=== PATIENT | female | born 1945 | race Caucasian/White ===

== ENCOUNTER 2019-10-23 19:37 | Inpatient (IN) | payer MEDICARE, OTHER ==
[~2019-10-23] VITALS: Ht 157.5 cm; Wt 63.6 kg
[2019-10-23] MEDS ORDERED: CYCL-331 PO (20:55)
[2019-10-23] MEDS ORDERED: OMEP40CA45 PO (20:55)
[2019-10-23] MEDS ORDERED: FLUT9.9S NS (20:55)
[2019-10-23] MEDS ORDERED: POLY2500 PO (20:55)
[2019-10-23] MEDS ORDERED: CALC-31 PO (20:55)
[2019-10-23] MEDS ORDERED: ASPI-612 PO (20:55)
[2019-10-23] MEDS ORDERED: CRAN250C PO (20:55)
[2019-10-23] MEDS ORDERED: METO50TA6 PO (20:55)
[2019-10-23] MEDS ORDERED: SIME80TA14 PO (20:55)
[2019-10-23] MEDS ORDERED: LEVO50TA5 PO (20:55)
[2019-10-23] MEDS ORDERED: LORA10TA3 PO (20:55)
[2019-10-23] MEDS ORDERED: GENTAMICIN NS (20:55)
[2019-10-23] MEDS ORDERED: ACET500T68 PO (20:55)
[2019-10-23] MEDS ORDERED: BENA20TA4 PO (20:55)
[2019-10-23] MEDS ORDERED: OMEG10005 PO (20:55)
[2019-10-23] MEDS ORDERED: POLY15DR20 EACHEYE (20:55)
[2019-10-23] MEDS ORDERED: LACT1CAP21 PO (20:55)
[2019-10-23] MEDS ORDERED: MULT-245 PO (20:55)
[2019-10-23] MEDS ORDERED: SODI50SP NS (20:55)
[2019-10-23] MEDS ORDERED: NYST1000 PO (20:55)
[2019-10-23] MEDS ORDERED: ATOR20TA58 PO (20:55)
[2019-10-23] MEDS ORDERED: MAGNESIUM HYDROXIDE 2,400 MG/30 ML ORAL.SUSP. PO PRN (21:15)
--- NOTE | 2019-10-23 21:25 | PDOC ---
Exam Note: Ashok Note: Please also refer to the separate dictated note~for this date of service dictated separately. Discussed the patient with Nursing staff reviewed the chart.~Reviewed interim history and current functioning. Reviewed vital signs,~Labs/ Radiology~and current medications noted below. Continue current treatment with the changes noted in the dictated addendum note Current Medications: I have reviewed the current psychotropics carefully including drug interactions. Risk benefit ratio favors no change other than as noted in my dictated progress note. ERNESTINA KINSEY MD Oct 23, 2019 21:25
[2019-10-23] MEDS ORDERED: ACETAMINOPHEN 500 MG TABLET PO PRN (22:00)
[2019-10-23] MEDS ORDERED: POLYVINYL ALCOHOL 1.4% OPHTH SOLUTION 15ML BOTTLE. OU PRN (22:00)
[2019-10-23] MEDS ORDERED: SODIUM CHLORIDE 0.65% NASAL SPRAY 45ML BOTTLE. NS PRN (22:00)
[2019-10-23 22:38] LABS: BASO % 0 % (0-3); EOS # 0.1 x10^3/uL (0.0-0.7); EOS % 1 % (0-3); HEMATOCRIT 35.1 % (36.0-47.0); HEMOGLOBIN 12.3 g/dL (12.0-15.5); LYMPH # 2.4 x10^3/uL (1.0-4.8); LYMPH % 25 % (24-48); MEAN CORPUSCULAR HEMOGLOBIN 34 pg (25-35); MEAN CORPUSCULAR HGB CONC 35 g/dL (31-37); MEAN CORPUSCULAR VOLUME 97 fL (79-100); MONO % 11 % (0-9); NEUT # 6.2 x10^3uL (1.8-7.7); NEUT % 64 % (31-73); PLATELET COUNT 300 x10^3/uL (140-400); RED BLOOD COUNT 3.63 x10^6/uL (3.50-5.40); RED CELL DISTRIBUTION WIDTH 12.4 % (11.5-14.5); WHITE BLOOD COUNT 9.7 x10^3/uL (4.0-11.0)
[2019-10-23 22:47] LABS: ALBUMIN 3.9 g/dL (3.4-5.0); ALBUMIN/GLOBULIN RATIO 1.1 (1.0-1.7); CALCIUM 9.6 mg/dL (8.5-10.1); GFR 54.1; MAGNESIUM 1.7 mg/dL (1.8-2.4); POTASSIUM 3.9 mmol/L (3.5-5.1); TOTAL BILIRUBIN 0.3 mg/dL (0.2-1.0); TOTAL PROTEIN 7.6 g/dL (6.4-8.2)
--- NOTE | 2019-10-24 00:59 | EKG ---
[address] [address] Test Date: 2019-10-23 Test Time: 22:16:27 Pat Name: RADHA GEORGE Department: Room: [address] [place] [address] Gender: F Bung Driver: GERRY : 1945 Requested By: ERNESTINA KINSEY Order Number: [id number] Reading MD: Measurements Intervals [place] Rate: 63 P: 66 [place]: 178 QRS: -59 QRSD: 192 T: 123 QT: 452 QTc: 466 Interpretive Statements SINUS RHYTHM ATRIAL PREMATURE COMPLEX(ES) ABNORMAL LEFT AXIS DEVIATION NON SPECIFIC INTRAVENTRICULAR BLOCK ABNORMAL ECG RI6.02 No previous ECG available for comparison
[2019-10-24 01:48] VITALS: BP 138/63
--- NOTE | 2019-10-24 02:38 | NUR ---
Admission Note with Justification for Admission to [facility] Patient admitted to [facility] for protective oversight for emergency stabilization of acute psychiatric crisis. Pt admitted from: Home Mode of arrival: Secure Transport Accompanied By: Secure Transport Precipitating behaviors that initiated intake and admission: The patient did not trust herself to not harm herself at home. Description of failure of out patient attempts at stabilization in previous setting list behavior and medication trials: Medication, ER Behaviors and assessment findings upon admission: The patient was calm and compliant upon arrival. The patient was appropriate during interactions with this nurse and peers. The patient denied current SI thoughts but confirmed that she had thoughts of dying prior to admission. Plan: Admit for protective oversight for adjustment and stabilization of medications, behaviors and mood. Intense treatment regimen including groups, medication adjustments, therapy, consistent regimen for ADL's, self care, and sleep hygiene. Daily monitoring by Inpatient staff, Psychiatry, and Medical Physician.
[2019-10-24] MEDS: LEVOTHYROXINE 50 MCG TABLET PO SCH (05:51)
[2019-10-24 06:15] VITALS: BP 148/77
[2019-10-24] MEDS ORDERED: NON FORMULARY ITEM (Loratadine 10 MG) PO SCH (09:00)
[2019-10-24] MEDS: GENTAMICIN NS SCH ×2 (09:00→20:38)
[2019-10-24] MEDS ORDERED: CRANBERRY EXTRACT PO SCH (09:00)
[2019-10-24] MEDS: METOPROLOL TART IMMED RELEASE 50 MG TABLET PO SCH ×2 (09:01→20:38)
[2019-10-24] MEDS: LACTOBACILLUS RHAMNOSUS GG 1 CAPSULE. PO SCH (09:01)
[2019-10-24] MEDS: ASPIRIN ENTERIC COATED 81 MG TABLET.DR. PO SCH (09:01)
[2019-10-24] MEDS: MULTIVITAMIN with MINERAL TABLET. PO SCH (09:02)
[2019-10-24] MEDS: OMEGA-3 FATTY ACIDS/FISH OIL 1,000 MG CAPSULE. PO SCH (09:02)
[2019-10-24] MEDS: LISINOPRIL 20 MG TABLET PO SCH (09:02)
[2019-10-24] MEDS: PANTOPRAZOLE 40 MG TABLET. PO SCH (09:02)
[2019-10-24] MEDS: NYSTATIN 100,000 UNITS/ML ORAL SUSPENSION 60ML BOTTLE. PO SCH ×4 (09:03→20:36)
[2019-10-24] MEDS: POLYETHYLENE GLYCOL 3350 17 GM PACKET. PO SCH (09:03)
[2019-10-24] MEDS: CALCIUM CARB/VIT D3 500/200 TABLET PO SCH ×2 (09:03→20:36)
[2019-10-24] MEDS: FLUTICASONE 50MCG/NASAL SPRAY 16GM BOTTLE. NS SCH (09:03)
[2019-10-24] MEDS: ACETAMINOPHEN 325 MG TABLET PO PRN (14:14)
[2019-10-24] MEDS: METHYL SALICYLATE/MENTHOL TOPICAL OINTMENT 57GM TUBE. TP PRN (14:14)
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
[2019-10-24 16:07] VITALS: BP 132/74
--- NOTE | 2019-10-24 17:57 | NUR ---
Pt in dining room for morning med pass and assessment. Pt calm, compliant, interactive. Pt is oriented x4. Pt states she has No thoughts of harming herself at this time.
[2019-10-24 19:07] LABS: THYROXINE 8.8 ug/dL (4.5-12.0)
[2019-10-24] MEDS: ATORVASTATIN CALCIUM 20 MG TABLET PO SCH (20:36)
[2019-10-24] MEDS: CYCLOBENZAPRINE 10 MG TABLET. PO SCH (20:36)
--- NOTE | 2019-10-24 22:00 | NUR ---
Patient is the day room on assumption of care, socializing with a peer and watching television. She is calm, cooperative and compliant with medications and assessments. No agitation. Denies pain or discomfort. Denies SI.
[2019-10-24 22:23] LABS: BACTERIA,URINE 0 /HPF (0-FEW); BILIRUBIN,URINE NEG (NEG); CLARITY,URINE CLEAR; COLOR,URINE YELLOW; GLUCOSE,URINE NEG (NEG); NITRITE,URINE NEG (NEG); RBC,URINE OCC /HPF (0-2); SQUAMOUS EPITHELIAL CELL,UR OCC /LPF; UROBILINOGEN,URINE 0.2 mg/dL (0.2 mg/dL); WBC,URINE OCC /HPF (0-4)
--- NOTE | 2019-10-24 22:37 | PDOC ---
Exam Note: Ashok Note: Please also refer to the separate dictated note~for this date of service dictated separately.~Patient seen individually. Discussed the patient with Nursing staff reviewed the chart.~Reviewed interim history and current functioning. Reviewed vital signs,~Labs/ Radiology~and current medications noted below. Continue current treatment with the changes noted in the dictated addendum note Assessment: Vital Signs/I&O: Vital Signs Date Time Temp Pulse Resp B/P (MAP) Pulse Ox O2 Delivery O2 Flow Rate FiO2 10/24/19 20:38 70 132/74 10/24/19 16:07 98.2 18 99 Room Air 10/24/19 06:15 99.0 Labs: Laboratory Tests Test 10/24/19 21:30 Urine Collection Type Unknown Urine Color Yellow Urine Clarity Clear Urine pH 6.5 Urine Specific [place] 1.010 Urine Protein Neg (NEG-TRACE) Urine Glucose (UA) Neg mg/dL (NEG) Urine Ketones (Stick) Neg mg/dL (NEG) Urine Blood Neg (NEG) Urine Nitrite Neg (NEG) Urine Bilirubin Neg (NEG) Urine Urobilinogen Dipstick 0.2 mg/dL (0.2 mg/dL) Urine Leukocyte Esterase Neg (NEG) Urine RBC Occ /HPF (0-2) Urine WBC Occ /HPF (0-4) Urine Squamous Epithelial Cells Occ /LPF Urine Bacteria 0 /HPF (0-FEW) Current Medications: Meds: Current Medications Medications (Trade) Dose Ordered Sig/Scott Route PRN Reason Start Time Stop Time Status Last Admin Dose Admin Aspirin (Aspirin Enteric Coated) 81 mg DAILY PO 10/24/19 09:00 10/24/19 09:01 Atorvastatin Calcium (Lipitor) 20 mg QHS PO 10/24/19 21:00 10/24/19 20:36 Cyclobenzaprine HCl (Flexeril) 10 mg HS PO 10/24/19 21:00 10/24/19 20:36 Levothyroxine Sodium (Synthroid) 50 mcg DAILY06 PO 10/24/19 06:00 10/24/19 05:51 Metoprolol Tartrate (Lopressor) 50 mg BID PO 10/24/19 09:00 10/24/19 20:38 Nystatin (Mycostatin) 5 ml QID PO 10/24/19 09:00 10/24/19 20:36 Lisinopril (Prinivil) 20 mg DAILY PO 10/24/19 09:00 10/24/19 09:02 Calcium/Vitamin D (Oscal D 500mg/ 200uts) 1 tab BID PO 10/24/19 09:00 10/24/19 20:36 Fluticasone Propionate (Flonase) 2 spray DAILY NS 10/24/19 09:00 10/24/19 09:03 Lactobacillus Rhamnosus (Culturelle) 1 cap DAILY PO 10/24/19 09:00 10/24/19 09:01 Multivitamins/ Calcium (Thera-M Plus) 1 tab DAILY PO 10/24/19 09:00 10/24/19 09:02 Fish Oil (Fish Oil) 1,000 mg DAILY PO 10/24/19 09:00 10/24/19 09:02 Pantoprazole Sodium (Protonix) 40 mg DAILYAC PO 10/24/19 07:30 10/24/19 09:02 Polyethylene Glycol (miraLAX) 17 gm DAILY PO 10/24/19 09:00 10/24/19 09:03 I have reviewed the current psychotropics carefully including drug interactions. Risk benefit ratio favors no change other than as noted in my dictated progress note. Diagnosis: Problems: (1) Psychotic disorder ERNESTINA KINSEY MD Oct 24, 2019 22:37
[2019-10-25 01:07] LABS: HEMOGLOBIN A1C 5.6 % (4.8-5.6)
[2019-10-25] MEDS: ACETAMINOPHEN 325 MG TABLET PO PRN (03:55)
[2019-10-25] MEDS: METHYL SALICYLATE/MENTHOL TOPICAL OINTMENT 57GM TUBE. TP PRN (03:55)
[2019-10-25 05:30] VITALS: BP 124/73
[2019-10-25] MEDS: LEVOTHYROXINE 50 MCG TABLET PO SCH (05:38)
[2019-10-25] MEDS: POLYETHYLENE GLYCOL 3350 17 GM PACKET. PO SCH (08:46)
[2019-10-25] MEDS: LACTOBACILLUS RHAMNOSUS GG 1 CAPSULE. PO SCH (08:47)
[2019-10-25] MEDS: CALCIUM CARB/VIT D3 500/200 TABLET PO SCH ×2 (08:48→20:40)
[2019-10-25] MEDS: METOPROLOL TART IMMED RELEASE 50 MG TABLET PO SCH ×2 (08:48→20:40)
[2019-10-25] MEDS: OMEGA-3 FATTY ACIDS/FISH OIL 1,000 MG CAPSULE. PO SCH (08:48)
[2019-10-25] MEDS: LISINOPRIL 20 MG TABLET PO SCH (08:48)
[2019-10-25] MEDS: ASPIRIN ENTERIC COATED 81 MG TABLET.DR. PO SCH (08:48)
[2019-10-25] MEDS: FLUTICASONE 50MCG/NASAL SPRAY 16GM BOTTLE. NS SCH (08:48)
[2019-10-25] MEDS: PANTOPRAZOLE 40 MG TABLET. PO SCH (08:48)
[2019-10-25] MEDS: MULTIVITAMIN with MINERAL TABLET. PO SCH (08:48)
[2019-10-25] MEDS: NYSTATIN 100,000 UNITS/ML ORAL SUSPENSION 60ML BOTTLE. PO SCH ×4 (08:49→20:41)
[2019-10-25] MEDS: GENTAMICIN NS SCH (09:00)
--- NOTE | 2019-10-25 09:13 | NUR ---
Patient ate breakfast quickly with minimal social interaction. Patient had a bowel movement today. Patient eager to take a shower today. Patient refused Miralax and previous nurse confirmed 1x loose stool last night. Patient complaint with medication and assessment.
[2019-10-25 15:42] VITALS: BP 116/73
--- NOTE | 2019-10-25 18:42 | NUR ---
Patient reports having a fungal infection on her feet from a used shoe she bought. Patient toe nails may appear a little yellow but no other signs noted at this time. Note left for doctor.
[2019-10-25] MEDS: CYCLOBENZAPRINE 10 MG TABLET. PO SCH (20:40)
[2019-10-25] MEDS: ATORVASTATIN CALCIUM 20 MG TABLET PO SCH (20:40)
--- NOTE | 2019-10-25 21:20 | PDOC ---
Exam Note: Ashok Note: Please also refer to the separate dictated note~for this date of service dictated separately.~Patient seen individually. Discussed the patient with Nursing staff reviewed the chart.~Reviewed interim history and current functioning. Reviewed vital signs,~Labs/ Radiology~and current medications noted below. Continue current treatment with the changes noted in the dictated addendum note Assessment: Vital Signs/I&O: Vital Signs Date Time Temp Pulse Resp B/P (MAP) Pulse Ox O2 Delivery O2 Flow Rate FiO2 10/25/19 20:40 83 116/73 10/25/19 15:42 96.6 20 98 10/24/19 16:07 Room Air 10/24/19 06:15 99.0 I & O 10/24/19 10/24/19 10/25/19 15:00 23:00 07:00 Intake Total 840 ml 480 ml Balance 840 ml 480 ml Labs: Laboratory Tests Test 10/24/19 21:30 Urine Collection Type Unknown Urine Color Yellow Urine Clarity Clear Urine pH 6.5 Urine Specific [place] 1.010 Urine Protein Neg (NEG-TRACE) Urine Glucose (UA) Neg mg/dL (NEG) Urine Ketones (Stick) Neg mg/dL (NEG) Urine Blood Neg (NEG) Urine Nitrite Neg (NEG) Urine Bilirubin Neg (NEG) Urine Urobilinogen Dipstick 0.2 mg/dL (0.2 mg/dL) Urine Leukocyte Esterase Neg (NEG) Urine RBC Occ /HPF (0-2) Urine WBC Occ /HPF (0-4) Urine Squamous Epithelial Cells Occ /LPF Urine Bacteria 0 /HPF (0-FEW) Current Medications: I have reviewed the current psychotropics carefully including drug interactions. Risk benefit ratio favors no change other than as noted in my dictated progress note. Diagnosis: Problems: (1) Psychotic disorder (2) Anxiety disorder (3) Impulse control disorder (4) Major depressive disorder, recurrent episode ERNESTINA KINSEY MD Oct 25, 2019 21:20
--- NOTE | 2019-10-25 22:54 | NUR ---
Pt located in the dayroom sitting calmly reading a book. Pt A/O x4, stated that she is here because her daughter moved to [place] and her pain has become unbearable and was afraid she would hurt herself. Pt denies SI at this time, but states she is depressed. Compliant with whole medications.
[2019-10-26 05:39] VITALS: BP 116/50
[2019-10-26] MEDS: LEVOTHYROXINE 50 MCG TABLET PO SCH (05:57)
[2019-10-26] MEDS: PANTOPRAZOLE 40 MG TABLET. PO SCH (08:22)
[2019-10-26] MEDS: LACTOBACILLUS RHAMNOSUS GG 1 CAPSULE. PO SCH (08:23)
[2019-10-26] MEDS: METOPROLOL TART IMMED RELEASE 50 MG TABLET PO SCH ×2 (08:23→20:30)
[2019-10-26] MEDS: CALCIUM CARB/VIT D3 500/200 TABLET PO SCH ×2 (08:23→20:30)
[2019-10-26] MEDS: ASPIRIN ENTERIC COATED 81 MG TABLET.DR. PO SCH (08:23)
[2019-10-26] MEDS: LISINOPRIL 20 MG TABLET PO SCH (08:23)
[2019-10-26] MEDS: OMEGA-3 FATTY ACIDS/FISH OIL 1,000 MG CAPSULE. PO SCH (08:23)
[2019-10-26] MEDS: MULTIVITAMIN with MINERAL TABLET. PO SCH (08:23)
[2019-10-26] MEDS: POLYETHYLENE GLYCOL 3350 17 GM PACKET. PO SCH (08:24)
[2019-10-26] MEDS: FLUTICASONE 50MCG/NASAL SPRAY 16GM BOTTLE. NS SCH (08:24)
[2019-10-26] MEDS: ACETAMINOPHEN 325 MG TABLET PO PRN ×2 (08:25→20:30)
[2019-10-26] MEDS: NYSTATIN 100,000 UNITS/ML ORAL SUSPENSION 60ML BOTTLE. PO SCH ×4 (08:25→20:31)
[2019-10-26] MEDS ORDERED: SERTRALINE 25 MG TABLET. PO SCH (09:00)
--- NOTE | 2019-10-26 09:06 | NUR ---
Patient ate breakfast. Patient mention her daughter and how she misses her but is proud of her daughter for reaching her goals. Patient eager to take a shower today. Patient refused Miralax states she had a loose stool last night. Patient complaint with medication and assessment.
--- NOTE | 2019-10-26 12:16 | HP ---
ADMIT DATE: 10/24/2019 I met with the patient evening of 10/24/2019 for this evaluation. IDENTIFYING DATA: The patient is a 74-year-old female referred to us from [facility], referred by [facility], who evaluated her and recommended inpatient psychiatric hospitalization for worsening symptoms of depression and suicidal ideation. The patient has been living alone in her apartment, getting more paranoid since her daughter left to move to [place], [place]. She states she does not trust herself to not harm herself. She is unable to commit to safety, was fearful, ruminating and obsessing about life not being worth living and having intrusive thoughts about suicide. She has failed outpatient psychiatric interventions and presented to the ER. She has also failed welfare checks and prior antidepressant treatment in the past. Cognitively, she remains intact, which raises the risk of hurting herself. She was therefore referred for inpatient psychiatric stabilization. CHIEF COMPLAINT: "Yes, I have been depressed. I live by myself. My daughter moved to [place]. It is difficult." HISTORY OF PRESENT ILLNESS: The patient has a history of depression, feeling hopeless, helpless, worthless with sleep and appetite disturbance. She has had some limited ability to take care of herself, has been more paranoid. No active homicidal ideation. No clear history of bipolar disorder. Cognitively, she is reasonably intact. PAST PSYCHIATRIC HISTORY: As noted above. PAST MEDICAL HISTORY: Positive for GERD, hypertension, hypothyroidism, osteopenia, second-degree heart block, pacemaker in place, aortic insufficiency, hyperlipidemia, hyponatremia as sciatica, chronic kidney disease stage 3, cystitis, environmental allergies, history of kidney cyst, history of left femoral fracture, memory loss, near syncope, osteoporosis, peripheral vascular disease, renal insufficiency, rheumatic fever, TMJ arthralgia, vertigo. ACCU-CHEKS: None. ALLERGIES: ENTEX LA, LEVOTHYROXINE, ATIVAN, ALENDRONATE, CINNAMON, CIPROFLOXACIN, CELEXA, FOSAMAX, GUANFACINE, LEVAQUIN, METOCLOPRAMIDE, PHENYLEPHRINE, SULFA, ZELNORM, ZYRTEC D, AMLODIPINE, KEFLEX, PREDNISONE, SUDAFED. CODE STATUS: Full code. DIET: Regular, cardiac. Takes medications whole. Ambulates with walker. CURRENT PSYCHOTROPICS: Nil. FAMILY HISTORY: Noncontributory. SOCIAL HISTORY: No history of alcohol, drug abuse, physical, sexual or elder abuse. She is not known to be a perpetrator. REACTION TO HOSPITALIZATION: The patient accepting of this. ASSETS: Patient has her daughter, but the daughter has moved to [facility]. The patient is cognitively intact. She has a friend who helps with grocery shopping and visits to the doctor. REVIEW OF SYSTEMS: Ambulation impaired with walker. No CV, , pulmonary, eye, ENT system symptoms on review. MENTAL STATUS EXAMINATION: Oriented to herself, situation and generally well oriented. Speech has some latency, coherent. Abstraction fair, computation somewhat impaired, language function intact, attention span short. Mood is depressed, anxious. Affect is mood congruent. She is somewhat paranoid, somewhat distractable. LABORATORY DATA: Reviewed. IMPRESSION: Major depressive disorder, recurrent with suicidal ideation, rule out psychotic features; anxiety disorder, unspecified. Rest as above. PLAN: Admit to Geropsychiatry Unit at [facility]. I will see the patient daily individually from a psychiatric standpoint. Medical followup with Dr. Milan. Continue the patient on her current psychotropics. Consider starting an SSRI. Allergy to Celexa is unclear and the patient does not remember any allergic reaction to the Celexa. We may need an alternate antidepressant. We will make all these decisions post baseline assessment. Estimated length of stay 10-12 days. DISPOSITION: Plans back home or assisted living with an intense outpatient treatment with a local [facility]. ERNESTINA KINSEY MD DR: KELSIE/renzo JOB#: [id number] / [id number]
[2019-10-26 15:24] VITALS: BP 128/70
--- NOTE | 2019-10-26 15:31 | PN ---
DATE: 10/25/2019 PSYCHIATRIC PROGRESS NOTE This late entry date 10/25/2019 covers elements not covered in my initial note. SUBJECTIVE: I met with the patient evening of 10/25/2019. The patient slept 6 hours previous night. She remains withdrawn, depressed, isolative. Denies active suicidal ideation. REVIEW OF SYSTEMS: Ambulation impaired with walker. No CV, , pulmonary, eye system symptoms on review. MENTAL STATUS EXAM: Reasonably oriented. Speech coherent, abstraction fair, computation somewhat impaired, language function intact. She is quite anxious, upset that president Mónica is going to be investigated again by the Congress and was perseverating on this. Addressed this with her. No active suicidal ideation. LABORATORY DATA: Reviewed. IMPRESSION: Major depressive disorder, recurrent with possible psychotic features; anxiety disorder, unspecified. Rest unchanged. PLAN: Continue current psychotropics. Start Zoloft 25 mg a day. Late at night, I was called by nursing staff that pharmacy noted allergy to Celexa and wanted to make sure Zoloft was appropriate. We reviewed her history records. The patient is unaware of any specific allergic reaction to Celexa and certainly nothing with any breathing problems or anaphylaxis. We will start Zoloft 25 mg a day. Observe closely and change as clinically indicated. Risk/benefit ratio favors this. Addressed this at length with nursing staff and reviewed her records as part of this. ERNESTINA KINSEY MD DR: KELSIE/renzo JOB#: [id number] / [id number]
[2019-10-26] MEDS: ATORVASTATIN CALCIUM 20 MG TABLET PO SCH (20:30)
[2019-10-26] MEDS: CYCLOBENZAPRINE 10 MG TABLET. PO SCH (20:31)
--- NOTE | 2019-10-26 21:15 | PDOC ---
Exam Note: Ashok Note: Please also refer to the separate dictated note~for this date of service dictated separately.~Patient seen individually. Discussed the patient with Nursing staff reviewed the chart.~Reviewed interim history and current functioning. Reviewed vital signs,~Labs/ Radiology~and current medications noted below. Continue current treatment with the changes noted in the dictated addendum note Assessment: Vital Signs/I&O: Vital Signs Date Time Temp Pulse Resp B/P (MAP) Pulse Ox O2 Delivery O2 Flow Rate FiO2 10/26/19 20:30 89 128/70 10/26/19 15:24 97.8 18 94 10/24/19 16:07 Room Air 10/24/19 06:15 99.0 I & O 10/25/19 10/25/19 10/26/19 15:00 23:00 07:00 Intake Total 960 ml 240 ml Balance 960 ml 240 ml Current Medications: Meds: Current Medications Medications (Trade) Dose Ordered Sig/Scott Route PRN Reason Start Time Stop Time Status Last Admin Dose Admin Sertraline HCl (Zoloft) 25 mg DAILY PO 10/26/19 09:00 10/26/19 09:18 I have reviewed the current psychotropics carefully including drug interactions. Risk benefit ratio favors no change other than as noted in my dictated progress note. Diagnosis: Problems: (1) Psychotic disorder (2) Anxiety disorder (3) Impulse control disorder (4) Major depressive disorder, recurrent episode ERNESTINA KINSEY MD Oct 26, 2019 21:15
[2019-10-26] MEDS ORDERED: traZODone 50 MG TABLET. PO PRN (22:15)
--- NOTE | 2019-10-26 22:36 | NUR ---
Pt sitting calmly in dayroom this evening. Pt pleasant and interactive with staff and peers. Compliant with HS medications. PRN Tylenol administered per pt request. Shaila SI.
[2019-10-27] MEDS: LEVOTHYROXINE 50 MCG TABLET PO SCH (05:37)
[2019-10-27 06:13] VITALS: BP 102/57
[2019-10-27] MEDS: LACTOBACILLUS RHAMNOSUS GG 1 CAPSULE. PO SCH (08:22)
[2019-10-27] MEDS: ASPIRIN ENTERIC COATED 81 MG TABLET.DR. PO SCH (08:22)
[2019-10-27] MEDS: OMEGA-3 FATTY ACIDS/FISH OIL 1,000 MG CAPSULE. PO SCH (08:22)
[2019-10-27] MEDS: PANTOPRAZOLE 40 MG TABLET. PO SCH (08:24)
[2019-10-27] MEDS: MULTIVITAMIN with MINERAL TABLET. PO SCH (08:24)
[2019-10-27] MEDS: POLYETHYLENE GLYCOL 3350 17 GM PACKET. PO SCH (08:24)
[2019-10-27] MEDS: CALCIUM CARB/VIT D3 500/200 TABLET PO SCH ×2 (08:24→20:01)
[2019-10-27] MEDS: FLUTICASONE 50MCG/NASAL SPRAY 16GM BOTTLE. NS SCH (09:00)
[2019-10-27] MEDS: NYSTATIN 100,000 UNITS/ML ORAL SUSPENSION 60ML BOTTLE. PO SCH ×4 (09:00→20:03)
[2019-10-27] MEDS: SIMETHICONE 80 MG TAB.CHEW PO PRN ×2 (09:15→20:13)
[2019-10-27] MEDS: METOPROLOL TART IMMED RELEASE 50 MG TABLET PO SCH ×2 (09:16→20:03)
[2019-10-27] MEDS: DULoxetine HCL 30 MG CAPSULE.DR PO SCH (09:16)
[2019-10-27] MEDS: LISINOPRIL 20 MG TABLET PO SCH (09:16)
--- NOTE | 2019-10-27 09:28 | CONS ---
DATE OF CONSULTATION: 10/25/2019 ATTENDING PHYSICIAN: Dr. Fernandez. HISTORY OF PRESENT ILLNESS: We are asked to see this patient for medical consultation. The patient is a 74-year-old female transferred from [facility] in [place], [place] for suicidal ideation without a plan. She is demented. She stated she thought that democrats wanted to investigate Trump again, became very depressed. She has been in the intermediate for the last year. She has a longstanding history of gastroesophageal reflux disease, anxiety, depression, hypertension, hypothyroidism, osteopenia, second-degree heart block, permanent pacemaker, aortic insufficiency, hyperlipidemia DICTATION ENDS HERE. LINDSEY VILA MD DR: LARRY/renzo JOB#: [id number] / [id number] GREGORY Marks MD
--- NOTE | 2019-10-27 09:33 | CONS ---
DATE OF CONSULTATION: 10/25/2019 ATTENDING PHYSICIAN: Dr. Fernandez. We are asked to see this patient for medical consultation. HISTORY OF PRESENT ILLNESS: The patient is a 74-year-old female admitted 2 days ago from [facility] in [place], [place]. She became despondent when she heard that the democrats were wanting to investigate [employer] again, became depressed. She has no plans. She has a longstanding history of dementia along with psychosis, gastroesophageal reflux disease, anxiety, depression, hypertension, hypothyroidism, second-degree heart block, permanent pacemaker, aortic insufficiency, hyperlipidemia, sciatica, chronic kidney disease stage III, chronic cystitis, environmental allergies, kidney cyst, left femoral neck fracture, memory loss, near syncope, TMJ and vertigo. ALLERGIES: She has multiple drug allergies including SULFA DRUGS, ALENDRONATE, AMLODIPINE, CEPHALEXIN, ZYRTEC, CINNAMON, CIPRO, CITALOPRAM, GUAIFENESIN, LEVOFLOXACIN, SYNTHROID, LORAZEPAM, METOCLOPRAMIDE, PHENYLEPHRINE, PHENYLPROPANOLAMINE. Exact etiology and cause is unclear. List of medications, she takes Tylenol, Artificial Tears, aspirin, Lipitor, calcium, Flexeril, fish oil, fluticasone, lactobacillus, Synthroid, lisinopril, magnesium, multivitamins, nystatin, pantoprazole, MiraLax, simethicone and saline mist. SOCIAL HISTORY: She is a nonsmoker, nondrinker. She is not diabetic. FAMILY HISTORY: Unobtainable. REVIEW OF SYSTEMS: Unobtainable due to the patient's confusion. She does not appear in any acute distress. PHYSICAL EXAMINATION: When I saw her: GENERAL: This is a pleasant, but confused elderly female. INITIAL VITAL SIGNS: Showed a blood pressure 124/73, pulse is 66 and regular, oxygen saturation is adequate on room air and she was afebrile. HEENT: The head is without trauma. The pupils are reactive. Sclerae nonicteric. Oropharynx clear. NECK: Supple. No bruits identified. LUNGS: Otherwise clear. CARDIOVASCULAR: Regular heart tones. No obvious gallops. Peripheral pulses are palpable. ABDOMEN: Soft, scaphoid, nontender, no organomegaly. Bowel sounds are hypoactive. EXTREMITIES: Showed no cyanosis or edema. NEUROLOGIC: Focally intact. No deficits. She is confused and not aware of time. Pertinent laboratory and x-ray studies; hemoglobin is maintained at 12.3 g/dL with white count of 9700. Electrolytes were within normal range. Her hemoglobin A1c was 5.6. ASSESSMENT: 1. This 74-year-old female has suicidal ideations without any plans. 2. Underlying dementia. 3. Essential hypertension. 4. Depression with psychosis. 5. Degenerative arthritis. 6. Chronic kidney disease. RECOMMENDATIONS: 1. I reviewed her medications. I do not find any contraindications. 2. Diet as tolerated. 3. We should gladly follow along during her inpatient stay. Thank you again for asking us to see this patient for medical consultation. LINDSEY VILA MD DR: LARRY/renzo JOB#: [id number] / [id number] GREGORY Marks MD
[2019-10-27] MEDS: ONDANSETRON ODT 4 MG TAB.RAPDIS PO PRN (12:42)
[2019-10-27 16:07] VITALS: BP 121/66
[2019-10-27 16:17] LABS: THYROID STIM HORMONE (TSH) 3.636 uIU/mL (0.358-3.740)
--- NOTE | 2019-10-27 16:25 | NUR ---
ACTIVITY THERAPY ASSESSMENT Completed based on observation and interview. Pt. was a reliable reported and pleasant to talk to. She shared a lot about her family and recent struggled with SI. She denied having any SI since she has been admitted. She is aware of her isolative behaviors over the last six months and is a self-sign to our unit. Pt. is able to identify barriers to leisure involvement and contributing factors to her depression: pain (acid reflux, sciatica, arthritis, disks), financial restraints, legally blind without glasses, does not drive (never learned how), and daughter's recent move to [place]. Pt. goes by "Marilu," and identifies as a "social person." Pt. has a cat named "Fco," and enjoys: poetry/ song writing (has done contests), old shows ([employer]), country/gospel music, some time on Facebook, used to volunteer (library, [facility]), and contacts her local congressman. She talked on the phone with her friends and family. 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 RN SUPPLEMENTAL and Pt. discussed options of moving near family or to a community with leisure and social opportunities; however, she said she would have to find new doctors/protestant/network if she moved and overall had no interest in a living with others right now. Pt. has been seen reading a Bible and will participate in groups, can retreat to her room at times. Initial goal aimed to increase socialization and leisure awareness: Pt. will participate in at least one Activity Therapy group per day.
--- NOTE | 2019-10-27 18:08 | NUR ---
Pt calm compliant with meds and assessment, oriented x4. No thoughts of harming herself. Pt had an upset stomach after breakfast and spent morning and most of the afternoon in her room sleeping. Pt did come to dining room for dinner.
[2019-10-27] MEDS: CYCLOBENZAPRINE 10 MG TABLET. PO SCH (20:01)
[2019-10-27] MEDS: ATORVASTATIN CALCIUM 20 MG TABLET PO SCH (20:01)
[2019-10-27] MEDS: ACETAMINOPHEN 325 MG TABLET PO PRN (21:17)
--- NOTE | 2019-10-27 21:37 | PDOC ---
Exam Note: Ashok Note: Please also refer to the separate dictated note~for this date of service dictated separately.~Patient seen individually. Discussed the patient with Nursing staff reviewed the chart.~Reviewed interim history and current functioning. Reviewed vital signs,~Labs/ Radiology~and current medications noted below. Continue current treatment with the changes noted in the dictated addendum note Assessment: Vital Signs/I&O: Vital Signs Date Time Temp Pulse Resp B/P (MAP) Pulse Ox O2 Delivery O2 Flow Rate FiO2 10/27/19 20:03 68 121/66 10/27/19 16:07 97.2 18 97 10/24/19 16:07 Room Air 10/24/19 06:15 99.0 I & O 10/26/19 10/26/19 10/27/19 15:00 23:00 07:00 Intake Total 960 ml 360 ml 100 ml Balance 960 ml 360 ml 100 ml Current Medications: Meds: Current Medications Medications (Trade) Dose Ordered Sig/Scott Route PRN Reason Start Time Stop Time Status Last Admin Dose Admin Duloxetine HCl (Cymbalta) 30 mg DAILY PO 10/27/19 09:00 10/29/19 09:01 10/27/19 09:16 Ondansetron HCl (Zofran Odt) 4 mg PRN Q8HRS PRN PO NAUSEA/VOMITING 10/27/19 12:30 10/27/19 12:42 I have reviewed the current psychotropics carefully including drug interactions. Risk benefit ratio favors no change other than as noted in my dictated progress note. Diagnosis: Problems: (1) Psychotic disorder (2) Anxiety disorder (3) Impulse control disorder (4) Major depressive disorder, recurrent episode ERNESTINA KINSEY MD Oct 27, 2019 21:37
--- NOTE | 2019-10-27 22:40 | NUR ---
Pt located in dayroom this evening. Pt calm, pleasant and interactive. Compliant with HS medications. PRN GasX and Tylenol administered per pt request.
--- NOTE | 2019-10-28 01:07 | PN ---
DATE: 10/26/2019 PSYCHIATRIC PROGRESS NOTE This late entry 10/26/2019 covers elements not covered in my initial note. SUBJECTIVE: I met with the patient evening of 10/26/2019. Per JOSE Michel, patient has been alert, oriented, talked about writing poetry and songs. Denies active suicidal ideations, still complains of being depressed. REVIEW OF SYSTEMS: Positive for low back pain and pain in her leg, slept poorly the previous night. Review of systems in addition to above, no CV, , pulmonary, eye system symptoms on review. Ambulation impaired with walker. Reliability fair. MENTAL STATUS EXAM: Oriented reasonably. Speech is coherent, very verbal as I sat with her at length in the evening, abstraction fair, computation impaired, language function intact, attention span short. Mood and affect remains depressed. LABORATORY DATA: Reviewed. IMPRESSION: Major depressive disorder, recurrent with history of suicidal ideation; anxiety disorder, unspecified. PLAN: Change Zoloft to Cymbalta 30 mg a day for 3 days and 60 mg a day thereafter. This may be a more efficacious not only as an antidepressant, but also to help with her pain. We will start trazodone 50 mg at bedtime p.r.n., may repeat x 1 for insomnia. Rest unchanged for now. ERNESTINA KINSEY MD DR: KELSIE/renzo JOB#: [id number] / [id number]
[2019-10-28] MEDS: LEVOTHYROXINE 50 MCG TABLET PO SCH (06:18)
[2019-10-28 06:30] VITALS: BP 111/72
[2019-10-28] MEDS: ASPIRIN ENTERIC COATED 81 MG TABLET.DR. PO SCH (08:15)
[2019-10-28] MEDS: LACTOBACILLUS RHAMNOSUS GG 1 CAPSULE. PO SCH (08:15)
[2019-10-28] MEDS: METOPROLOL TART IMMED RELEASE 50 MG TABLET PO SCH ×2 (08:15→20:04)
[2019-10-28] MEDS: LISINOPRIL 20 MG TABLET PO SCH (08:16)
[2019-10-28] MEDS: OMEGA-3 FATTY ACIDS/FISH OIL 1,000 MG CAPSULE. PO SCH (08:16)
[2019-10-28] MEDS: MULTIVITAMIN with MINERAL TABLET. PO SCH (08:16)
[2019-10-28] MEDS: CALCIUM CARB/VIT D3 500/200 TABLET PO SCH ×2 (08:16→20:00)
[2019-10-28] MEDS: POLYETHYLENE GLYCOL 3350 17 GM PACKET. PO SCH ×2 (08:16→08:23)
[2019-10-28] MEDS: PANTOPRAZOLE 40 MG TABLET. PO SCH (08:16)
[2019-10-28] MEDS: DULoxetine HCL 30 MG CAPSULE.DR PO SCH (08:16)
[2019-10-28] MEDS: FLUTICASONE 50MCG/NASAL SPRAY 16GM BOTTLE. NS SCH (08:17)
[2019-10-28] MEDS: NYSTATIN 100,000 UNITS/ML ORAL SUSPENSION 60ML BOTTLE. PO SCH ×4 (08:17→20:01)
[2019-10-28] MEDS: ACETAMINOPHEN 325 MG TABLET PO PRN ×2 (08:19→20:03)
--- NOTE | 2019-10-28 09:21 | NUR ---
Patient reports pain/muscle aching in her bilateral heels/feet. She attributes it to her sciatica. PRN tylenol provided for pain per order. Patient stated that she had loose stool this morning and requested her miralax be held today. Miralax held.
--- NOTE | 2019-10-28 10:01 | NUR ---
Patient is pleasant and interactive. She denies SI when asked. Compliant with medications and cooperative with staff.
--- NOTE | 2019-10-28 13:56 | NUR ---
Patient refused 1300 nystatiin swish, stating that she was nauseated and felt "bloated". Nurse offered GasX or mylanta but patient declined and said she would just go lay down. 30 minutes later patient was in dayroom participating in group, although she continued to refuse med.
[2019-10-28 15:42] VITALS: BP 121/71
[2019-10-28] MEDS: CYCLOBENZAPRINE 10 MG TABLET. PO SCH (20:00)
[2019-10-28] MEDS: ATORVASTATIN CALCIUM 20 MG TABLET PO SCH (20:00)
[2019-10-28] MEDS: MAGNESIUM OXIDE 400 MG TABLET PO SCH (20:03)
--- NOTE | 2019-10-28 21:18 | PDOC ---
Exam Note: Ashok Note: Please also refer to the separate dictated note~for this date of service dictated separately.~Patient seen individually. Discussed the patient with Nursing staff reviewed the chart.~Reviewed interim history and current functioning. Reviewed vital signs,~Labs/ Radiology~and current medications noted below. Continue current treatment with the changes noted in the dictated addendum note Assessment: Vital Signs/I&O: Vital Signs Date Time Temp Pulse Resp B/P (MAP) Pulse Ox O2 Delivery O2 Flow Rate FiO2 10/28/19 15:42 97.8 58 16 121/71 (88) 100 10/24/19 16:07 Room Air 10/24/19 06:15 99.0 I & O 10/27/19 10/27/19 10/28/19 15:00 23:00 07:00 Intake Total 600 ml 480 ml Balance 600 ml 480 ml Current Medications: Meds: Current Medications Medications (Trade) Dose Ordered Sig/Scott Route PRN Reason Start Time Stop Time Status Last Admin Dose Admin Magnesium Oxide (Magnesium Oxide) 400 mg BID PO 10/28/19 21:00 10/28/19 20:03 I have reviewed the current psychotropics carefully including drug interactions. Risk benefit ratio favors no change other than as noted in my dictated progress note. Diagnosis: Problems: (1) Psychotic disorder (2) Anxiety disorder (3) Impulse control disorder (4) Major depressive disorder, recurrent episode ERNESTINA KINSEY MD Oct 28, 2019 21:18
--- NOTE | 2019-10-28 21:39 | NUR ---
PATIENT IS LOCATED IN DAY ROOM AT TIME OF ASSESSMENT AND MEDICATION ADMINISTRATION. PT IS CALM AND PLEASANT. PT IS COMPLIANT /WITH MEDICATIONS WHOLE WITH WATER. PATIENT REQUESTED PRN TYLENOL FOR GENERALIZED PAIN. PATIENT C/O LOOSE STOOLS THIS EVENING AND SOME ABD PAIN. PATIENT IS SITTING IN HALLWAY QUIETLY AT THIS TIME. WILL CONTINUE TO MONITOR.
--- NOTE | 2019-10-28 23:28 | PN ---
DATE: 10/27/2019 PSYCHIATRIC PROGRESS NOTE This late entry of 10/27/2019 covers elements not covered in my initial note. SUBJECTIVE: I met with the patient in the evening of 10/27/2019. The patient slept 4-1/2 hours previous night. Per JOSE Michel, the patient refused p.r.n., trazodone at night, took a nap during the day. REVIEW OF SYSTEMS: Positive for GI upset, some diarrhea. We will defer to Dr. Milan. No CV, , pulmonary, eye system symptoms on review. Gait unsteady with walker. MENTAL STATUS EXAM: Reasonably oriented. Speech is coherent, abstraction fair, computation impaired, language function intact. Mood and affect still somewhat anxious, labile, but improved. LABORATORY DATA: Reviewed. IMPRESSION: Unchanged from initial note. PLAN: No change from initial note. MAN Lit KINSEY MD DR: KELSIE/renzo JOB#: [id number] / [id number]
[2019-10-29] MEDS: LEVOTHYROXINE 50 MCG TABLET PO SCH (05:51)
[2019-10-29] MEDS: PANTOPRAZOLE 40 MG TABLET. PO SCH (05:51)
[2019-10-29] MEDS: ONDANSETRON ODT 4 MG TAB.RAPDIS PO PRN (05:52)
[2019-10-29 05:53] VITALS: BP 137/76
[2019-10-29] MEDS: POLYETHYLENE GLYCOL 3350 17 GM PACKET. PO SCH (08:07)
[2019-10-29] MEDS: MAGNESIUM OXIDE 400 MG TABLET PO SCH ×2 (08:08→21:28)
[2019-10-29] MEDS: LACTOBACILLUS RHAMNOSUS GG 1 CAPSULE. PO SCH (08:08)
[2019-10-29] MEDS: DULoxetine HCL 30 MG CAPSULE.DR PO SCH (08:08)
[2019-10-29] MEDS: OMEGA-3 FATTY ACIDS/FISH OIL 1,000 MG CAPSULE. PO SCH (08:08)
[2019-10-29] MEDS: CALCIUM CARB/VIT D3 500/200 TABLET PO SCH ×2 (08:09→21:28)
[2019-10-29] MEDS: METOPROLOL TART IMMED RELEASE 50 MG TABLET PO SCH ×2 (08:09→21:29)
[2019-10-29] MEDS: ASPIRIN ENTERIC COATED 81 MG TABLET.DR. PO SCH (08:09)
[2019-10-29] MEDS: MULTIVITAMIN with MINERAL TABLET. PO SCH (08:09)
[2019-10-29] MEDS: LISINOPRIL 20 MG TABLET PO SCH (08:09)
[2019-10-29] MEDS: FLUTICASONE 50MCG/NASAL SPRAY 16GM BOTTLE. NS SCH (08:10)
[2019-10-29] MEDS: NYSTATIN 100,000 UNITS/ML ORAL SUSPENSION 60ML BOTTLE. PO SCH ×4 (09:00→21:29)
--- NOTE | 2019-10-29 09:33 | NUR ---
Patient compliant with medications. She participated in morning group. She is calm and cooperative. States she is still depressed but doesn't want to hurt herself.
[2019-10-29 15:48] VITALS: BP 102/65
--- NOTE | 2019-10-29 16:03 | NUR ---
1:1 with Marilu this afternoon to socialize and support. Marilu is social and enjoys reminiscing of her past. She shares stories openly and recites poetry and song lyrics she has written. Marilu spoke of her future living arrangements and is considering a possible move to [place] to be closer to her son, daughter in law, and grandchildren. Marilu is torn though as she has many friends and buddhism family in the [place] area where she currently lives. Marilu was agreeable for this worker to obtain information on the PACE program in [facility] as possible increased support services and opportunities to be around others if a PACE day program is offered. Marilu also accepted invite to team meeting to be held on 10/31/19.
[2019-10-29] MEDS: SIMETHICONE 80 MG TAB.CHEW PO PRN (18:29)
[2019-10-29] MEDS: ATORVASTATIN CALCIUM 20 MG TABLET PO SCH (21:29)
[2019-10-29] MEDS: CYCLOBENZAPRINE 10 MG TABLET. PO SCH (21:29)
[2019-10-29] MEDS: ACETAMINOPHEN 325 MG TABLET PO PRN (21:35)
--- NOTE | 2019-10-29 21:44 | PDOC ---
Exam Note: Ashok Note: Please also refer to the separate dictated note~for this date of service dictated separately.~Patient seen individually. Discussed the patient with Nursing staff reviewed the chart.~Reviewed interim history and current functioning. Reviewed vital signs,~Labs/ Radiology~and current medications noted below. Continue current treatment with the changes noted in the dictated addendum note Assessment: Vital Signs/I&O: Vital Signs Date Time Temp Pulse Resp B/P (MAP) Pulse Ox O2 Delivery O2 Flow Rate FiO2 10/29/19 21:29 57 102/65 10/29/19 15:48 98.2 16 93 10/29/19 05:53 Room Air 10/24/19 06:15 99.0 I & O 10/28/19 10/28/19 10/29/19 15:00 23:00 07:00 Intake Total 720 ml 480 ml 240 ml Balance 720 ml 480 ml 240 ml Current Medications: I have reviewed the current psychotropics carefully including drug interactions. Risk benefit ratio favors no change other than as noted in my dictated progress note. Diagnosis: Problems: (1) Psychotic disorder (2) Anxiety disorder (3) Impulse control disorder (4) Major depressive disorder, recurrent episode ERNESTINA KINSEY MD Oct 29, 2019 21:44
[2019-10-29] MEDS: METHYL SALICYLATE/MENTHOL TOPICAL OINTMENT 57GM TUBE. TP PRN (22:16)
--- NOTE | 2019-10-29 23:30 | PN ---
DATE: 10/28/2019 PSYCHIATRIC PROGRESS NOTE This late entry 10/28/2019 covers elements not covered in my initial note. SUBJECTIVE: I met with the patient evening of 10/28/2019. Per JOSE Turner, the patient slept 8 hours previous night. She has been doing better, still depressed, anxious, but not suicidal. REVIEW OF SYSTEMS: No CV, , pulmonary, eye system symptoms on review. Reliability fair. Ambulation impaired with walker. MENTAL STATUS EXAM: Reasonably oriented. Speech is coherent, met with her at some length in the evening, abstraction fair, computation somewhat impaired, language function intact, attention span fair. Mood and affects still somewhat depressed. LABORATORY DATA: Reviewed. IMPRESSION: Unchanged from initial note. PLAN: No change from initial note. MAN Lit KINSEY MD DR: KELSIE/renzo JOB#: [id number] / [id number]
[2019-10-30] MEDS: LEVOTHYROXINE 50 MCG TABLET PO SCH (05:46)
[2019-10-30 06:13] VITALS: BP 106/62
[2019-10-30 08:11] LABS: BASO % 1 % (0-3); EOS # 0.1 x10^3/uL (0.0-0.7); EOS % 2 % (0-3); HEMATOCRIT 35.1 % (36.0-47.0); HEMOGLOBIN 12.1 g/dL (12.0-15.5); LYMPH # 0.9 x10^3/uL (1.0-4.8); LYMPH % 16 % (24-48); MEAN CORPUSCULAR HEMOGLOBIN 33 pg (25-35); MEAN CORPUSCULAR HGB CONC 35 g/dL (31-37); MEAN CORPUSCULAR VOLUME 96 fL (79-100); MONO # 0.8 x10^3/uL (0.0-1.1); MONO % 15 % (0-9); NEUT # 3.8 x10^3uL (1.8-7.7); NEUT % 67 % (31-73); PLATELET COUNT 249 x10^3/uL (140-400); RED BLOOD COUNT 3.64 x10^6/uL (3.50-5.40); RED CELL DISTRIBUTION WIDTH 12.4 % (11.5-14.5); WHITE BLOOD COUNT 5.7 x10^3/uL (4.0-11.0)
[2019-10-30 08:16] LABS: ALBUMIN 3.8 g/dL (3.4-5.0); CALCIUM 9.1 mg/dL (8.5-10.1); GFR 54.1; POTASSIUM 4.4 mmol/L (3.5-5.1); TOTAL BILIRUBIN 0.6 mg/dL (0.2-1.0); TOTAL PROTEIN 7.6 g/dL (6.4-8.2)
[2019-10-30] MEDS: PANTOPRAZOLE 40 MG TABLET. PO SCH (08:17)
[2019-10-30] MEDS: FLUTICASONE 50MCG/NASAL SPRAY 16GM BOTTLE. NS SCH (08:17)
[2019-10-30] MEDS: DULoxetine HCL 60 MG CAPSULE.DR PO SCH (08:18)
[2019-10-30] MEDS: LACTOBACILLUS RHAMNOSUS GG 1 CAPSULE. PO SCH (08:18)
[2019-10-30] MEDS: METOPROLOL TART IMMED RELEASE 50 MG TABLET PO SCH ×2 (08:18→19:49)
[2019-10-30] MEDS: ASPIRIN ENTERIC COATED 81 MG TABLET.DR. PO SCH (08:18)
[2019-10-30] MEDS: OMEGA-3 FATTY ACIDS/FISH OIL 1,000 MG CAPSULE. PO SCH (08:18)
[2019-10-30] MEDS: POLYETHYLENE GLYCOL 3350 17 GM PACKET. PO SCH (08:19)
[2019-10-30] MEDS: MULTIVITAMIN with MINERAL TABLET. PO SCH (08:19)
[2019-10-30] MEDS: NYSTATIN 100,000 UNITS/ML ORAL SUSPENSION 60ML BOTTLE. PO SCH ×4 (08:19→19:47)
[2019-10-30] MEDS: MAGNESIUM OXIDE 400 MG TABLET PO SCH ×2 (08:19→19:49)
[2019-10-30] MEDS: CALCIUM CARB/VIT D3 500/200 TABLET PO SCH ×2 (08:19→19:49)
[2019-10-30] MEDS: LISINOPRIL 20 MG TABLET PO SCH (08:20)
--- NOTE | 2019-10-30 09:00 | NUR ---
Patient was in the dining room during morning rounding, took medications whole, allowed for morning assessment. Patient denies pain, no agitation noted at this time. Pt denies pain, will continue to monitor.
--- NOTE | 2019-10-30 11:40 | NUR ---
WEEKLY ACTIVITY THERAPY NOTE Date of Admission: 10/24/2019 Date of AT Assessment: 10/27/2019 Goal aimed: to increase socialization and leisure awareness Initial Goal: Pt. will participate in at least one Activity Therapy group per day. Weekly progress towards goal: goal evaluation begins next week Group participation level: 2 mod, 2 full Weekly highlights: Terri's Day lunch with ladies table Behaviors observed: reading book/Bible at times, shares in groups, pleasant overall Plan: no change to goal Beneficial adaptations:
[2019-10-30] MEDS: MAG HYDROX/AL HYDROX/SIMETH 30 ML ORAL.SUSP PO PRN (15:12)
[2019-10-30 16:12] VITALS: BP 124/64
[2019-10-30] MEDS: ATORVASTATIN CALCIUM 20 MG TABLET PO SCH (19:48)
[2019-10-30] MEDS: CYCLOBENZAPRINE 10 MG TABLET. PO SCH (19:49)
--- NOTE | 2019-10-30 21:21 | PDOC ---
Exam Note: Ashok Note: Please also refer to the separate dictated note~for this date of service dictated separately.~Patient seen individually. Discussed the patient with Nursing staff reviewed the chart.~Reviewed interim history and current functioning. Reviewed vital signs,~Labs/ Radiology~and current medications noted below. Continue current treatment with the changes noted in the dictated addendum note Assessment: Vital Signs/I&O: Vital Signs Date Time Temp Pulse Resp B/P (MAP) Pulse Ox O2 Delivery O2 Flow Rate FiO2 10/30/19 19:49 66 124/64 10/30/19 16:12 97.4 18 100 Room Air I & O 10/29/19 10/29/19 10/30/19 14:59 22:59 06:59 Intake Total 720 ml 360 ml 240 ml Balance 720 ml 360 ml 240 ml Labs: Laboratory Tests Test 10/30/19 07:44 10/30/19 08:00 White Blood Count 5.7 x10^3/uL (4.0-11.0) Red Blood Count 3.64 x10^6/uL (3.50-5.40) Hemoglobin 12.1 g/dL (12.0-15.5) Hematocrit 35.1 % (36.0-47.0) L Mean Corpuscular Volume 96 fL (79-100) Mean Corpuscular Hemoglobin 33 pg (25-35) Mean Corpuscular Hemoglobin Concent 35 g/dL (31-37) Red Cell Distribution Width 12.4 % (11.5-14.5) Platelet Count 249 x10^3/uL (140-400) Neutrophils (%) (Auto) 67 % (31-73) Lymphocytes (%) (Auto) 16 % (24-48) L Monocytes (%) (Auto) 15 % (0-9) H Eosinophils (%) (Auto) 2 % (0-3) Basophils (%) (Auto) 1 % (0-3) Neutrophils # (Auto) 3.8 x10^3uL (1.8-7.7) Lymphocytes # (Auto) 0.9 x10^3/uL (1.0-4.8) L Monocytes # (Auto) 0.8 x10^3/uL (0.0-1.1) Eosinophils # (Auto) 0.1 x10^3/uL (0.0-0.7) Basophils # (Auto) 0.0 x10^3/uL (0.0-0.2) Sodium Level 124 mmol/L (136-145) L Potassium Level 4.4 mmol/L (3.5-5.1) Chloride Level 90 mmol/L (98-107) L Carbon Dioxide Level 30 mmol/L (21-32) Anion Gap 4 (6-14) L Blood Urea Nitrogen 18 mg/dL (7-20) Creatinine 1.0 mg/dL (0.6-1.0) Estimated GFR (Cockcroft-Gault) 54.1 BUN/Creatinine Ratio 18 (6-20) Glucose Level 101 mg/dL (70-99) H Calcium Level 9.1 mg/dL (8.5-10.1) Total Bilirubin 0.6 mg/dL (0.2-1.0) Aspartate Amino Transferase (AST) 26 U/L (15-37) Alanine Aminotransferase (ALT) 29 U/L (14-59) Alkaline Phosphatase 53 U/L (46-116) Total Protein 7.6 g/dL (6.4-8.2) Albumin 3.8 g/dL (3.4-5.0) Albumin/Globulin Ratio 1.0 (1.0-1.7) Current Medications: Meds: Current Medications Medications (Trade) Dose Ordered Sig/Scott Route PRN Reason Start Time Stop Time Status Last Admin Dose Admin Duloxetine HCl (Cymbalta) 60 mg DAILY PO 10/30/19 09:00 10/30/19 08:18 I have reviewed the current psychotropics carefully including drug interactions. Risk benefit ratio favors no change other than as noted in my dictated progress note. Diagnosis: Problems: (1) Psychotic disorder (2) Anxiety disorder (3) Impulse control disorder (4) Major depressive disorder, recurrent episode ERNESTINA KINSEY MD Oct 30, 2019 21:21
--- NOTE | 2019-10-30 23:09 | PN ---
DATE: 10/29/2019 PSYCHIATRIC PROGRESS NOTE This late entry 10/29/2019 covers elements not covered in my initial note. SUBJECTIVE: I met with the patient evening of 10/29/2019. Per JOSE Turner, the patient slept 7-1/2 hours previous night. She is compliant with her medications, still somewhat depressed, withdrawn, but no suicidal ideation. REVIEW OF SYSTEMS: Ambulation impaired, with walker. No CV, , or pulmonary, eye, ENT system symptoms on review. MENTAL STATUS EXAM: Oriented to herself and situation. Speech has some latency, coherent. Abstraction fair, computation impaired, language function intact, attention span short. Mood and affect still withdrawn, anxious, but improved. LABORATORY DATA: Reviewed. IMPRESSION: Unchanged from initial note. PLAN: No change from initial note. MAN Lit KINSEY MD DR: KELSIE/renzo JOB#: [id number] / [id number]
--- NOTE | 2019-10-30 23:59 | NUR ---
This evening pt watched a movie in the day room. She was calm cooperative and denies SI. Meds taken whole without difficulty. No behaviors.
[2019-10-31] MEDS: LEVOTHYROXINE 50 MCG TABLET PO SCH (05:32)
[2019-10-31 06:18] VITALS: BP 133/59
[2019-10-31] MEDS: FLUTICASONE 50MCG/NASAL SPRAY 16GM BOTTLE. NS SCH (08:13)
[2019-10-31] MEDS: CALCIUM CARB/VIT D3 500/200 TABLET PO SCH ×2 (08:13→20:09)
[2019-10-31] MEDS: LACTOBACILLUS RHAMNOSUS GG 1 CAPSULE. PO SCH (08:13)
[2019-10-31] MEDS: MULTIVITAMIN with MINERAL TABLET. PO SCH (08:14)
[2019-10-31] MEDS: ASPIRIN ENTERIC COATED 81 MG TABLET.DR. PO SCH (08:14)
[2019-10-31] MEDS: OMEGA-3 FATTY ACIDS/FISH OIL 1,000 MG CAPSULE. PO SCH (08:14)
[2019-10-31] MEDS: PANTOPRAZOLE 40 MG TABLET. PO SCH (08:14)
[2019-10-31] MEDS: DULoxetine HCL 60 MG CAPSULE.DR PO SCH (08:14)
[2019-10-31] MEDS: MAGNESIUM OXIDE 400 MG TABLET PO SCH ×2 (08:15→20:11)
[2019-10-31] MEDS: METOPROLOL TART IMMED RELEASE 50 MG TABLET PO SCH ×2 (08:15→20:11)
[2019-10-31] MEDS: NYSTATIN 100,000 UNITS/ML ORAL SUSPENSION 60ML BOTTLE. PO SCH ×4 (08:15→20:09)
[2019-10-31] MEDS: POLYETHYLENE GLYCOL 3350 17 GM PACKET. PO SCH (08:15)
[2019-10-31] MEDS: LISINOPRIL 20 MG TABLET PO SCH (09:00)
--- NOTE | 2019-10-31 13:35 | TX PLAN ---
Interdisciplinary Tx Plan Admission Information Oct 23, 2019 at 20:40 Legal Status (on Admission): Voluntary DPOA/Guardian Name: Trupti Mckeon-self sign Verified Code Status: Full Code Allergies: Coded Allergies: Sulfa (Sulfonamide Antibiotics) (Verified Allergy, Unknown, Unknown, 10/23/19) alendronate sodium (Verified Allergy, Unknown, Unknown, 10/23/19) amlodipine (Verified Allergy, Unknown, Swelling, 10/23/19) cephalexin (Verified Allergy, Unknown, Itching, 10/23/19) cetirizine (Verified Allergy, Unknown, Unknown, 10/23/19) Drowsiness and fatigue cinnamon (Verified Allergy, Unknown, Unknown, 10/23/19) ciprofloxacin (Verified Allergy, Unknown, Unknown, 10/23/19) citalopram (Verified Allergy, Unknown, Unknown, 10/23/19) guaifenesin (Verified Allergy, Unknown, Unknown, 10/23/19) levofloxacin (Verified Allergy, Unknown, Unknown, 10/23/19) levothyroxine sodium (Verified Allergy, Unknown, Itching, 10/23/19) Only the 75 mcg dose lorazepam (Verified Allergy, Unknown, Itching, 10/23/19) metoclopramide (Verified Allergy, Unknown, Unknown, 10/23/19) phenylephrine (Verified Allergy, Unknown, Unknown, 10/23/19) phenylpropanolamine (Verified Allergy, Unknown, Itching, 10/23/19) prednisone (Verified Allergy, Unknown, Anxiety, 10/23/19) pseudoephedrine (Verified Allergy, Unknown, Palpitations, 10/23/19) tegaserod (Verified Allergy, Unknown, Unknown, 10/23/19) Estimated Length of Stay: 14 Diagnoses Primary Diagnosis: MDD Reasons for Admission: Depressed, Grief, Suicidal ideation Problem in Patient's Words: Per Trupti, "Partly Haily moving away. I've had sciatica pain and have been isolating." Additional Admission Comments: Per intake record, SI, doesn't trust herself not to harm herself, unable to commit to safety, fearful, ruminating, intrusive thoughts, daughter recently moved away to [place]. Problems Active Problems: Continues to report depressed mood Stressed about future living arrangements Inactive Problems: Medication compliant Pt Strengths/Limitations Ability for [place]: Fair Cognitive Functioning/Ability: Good Communication Skills/Ability: Good Financial Resources: Fair Insight/Judgement: Fair Intellectual Ability: Good Physical Health: Fair Social Skills: Good Stability in Family: Fair Verbal Skills: Good Discharge Criteria Discharge Criteria: Able meet basic life need, Able to meet health needs, Adequate arrangements @DC, Improved mood/thought Other Discharge Comments: Madelin is open to receiving information about the PACE program for possible increased supports in the community. Preliminary Discharge Plan Preliminary DC Plan: Current Living Arrange., Home Special Precautions Special Precautions: Suicide Risk Fall Risk: High Initial D/C Plan Home, [facility] at [facility]. Trupti is discussing joint terminal attack controller living arrangements and is considering a move to be closer to her son. Identified Discharge Needs: Out patient psychiatry, follow up with counselor, f/u with PCP. Currently Utilized Resources Currently Utilized Resources/P: Medical appointments with PCP. Referrals Community Resources: Possible PACE services Identified Problems/Hx/Goals Objectives/Short-Term Goals Short Term Goals: Decrease Isolation, Dec. Symp. Depression, Medication Stabilization, Monitor Med Effects, No Suicidal/Berenice. ideation, Prevent Deterioration, Promote Coping Skill Short Term Goals in Patient's: "Get everything straightened out in my mind." Interventions/Frequency Staff Interventions/Frequency&: Nursing provides regular safety checks, medication administation, adl support. Psychiatry visits 3-5 times per week. SW visits twice weekly. SW and recreational therapy groups as Trupti desires. 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 Education: Trupti attended school thru the 9th grade. She later obtained her GED at 44 years of age. Community Follow-up PCP, mental health for counseling and medication management, possibly PACE services Community Provider/Family Inpu: Marilu participated in team meeting on this date. Treatment Plan Explained Patient/Set Up Mechanic had this treatment plan explained to him/her as indicated by the signature below and has been given the opportunity to ask questions and make suggestions: Date: Patient/Set Up Mechanic Signature: ROMINA CUBA Oct 31, 2019 13:35
--- NOTE | 2019-10-31 13:43 | NUR ---
Call placed to [facility] program at [phone] with the intent to inquire about services that may be available to Marilu in the community. Left message for Ilia Glass with request for call back. STANLEY was informed that Ilia will be back in the office on Sunday of next week.
[2019-10-31 15:49] VITALS: BP 131/75
--- NOTE | 2019-10-31 17:20 | NUR ---
Patient is alert and oriented x3. No complaints. Pt is calm and compliant. Compliant with medications. Walks self around unit with walker. Comes out to day room, listens to groups with minimal participation. Pts sodium at 125, asymptomatic. Dr Milan suggested talking to Dr Fernandez about trazadone and fluoxetine. This nurse will discuss with Dr Fernandez on his rounds. Addendum: 10/31/19 at 1818 by CAMRYN STEWART RN Medication is duloxetine, not fluoxetine.
[2019-10-31] MEDS: ONDANSETRON ODT 4 MG TAB.RAPDIS PO PRN (17:35)
--- NOTE | 2019-10-31 18:05 | PN ---
DATE: 10/30/2019 PSYCHIATRIC PROGRESS NOTE This late entry 10/30/2019 covers the elements not covered in my initial note. SUBJECTIVE: I met with the patient evening of 10/30/2019. Per JOSE Flores, the patient slept 10 hours previous night. Overall, she is doing better, still depressed. Denies active suicidal ideation. REVIEW OF SYSTEMS: Ambulation impaired with walker. Complains of some constipation. Did receive MiraLax, will see how she does. No CV, , pulmonary, eye system symptoms on review. MENTAL STATUS EXAM: Reasonably oriented. Speech is coherent, abstraction fair, computation impaired, language function intact, attention span short. Mood and affect showing improvement. LABORATORY DATA: Reviewed. IMPRESSION: Unchanged from initial note. PLAN: No change from initial note. MAN Lit KINSEY MD DR: KELSIE/renzo JOB#: [id number] / [id number]
[2019-10-31] MEDS: ATORVASTATIN CALCIUM 20 MG TABLET PO SCH (20:10)
[2019-10-31] MEDS: CYCLOBENZAPRINE 10 MG TABLET. PO SCH (20:11)
[2019-10-31] MEDS: ACETAMINOPHEN 325 MG TABLET PO PRN (20:22)
--- NOTE | 2019-10-31 21:21 | PDOC ---
Exam Note: Ashok Note: Please also refer to the separate dictated note~for this date of service dictated separately.~Patient seen individually. Discussed the patient with Nursing staff reviewed the chart.~Reviewed interim history and current functioning. Reviewed vital signs,~Labs/ Radiology~and current medications noted below. Continue current treatment with the changes noted in the dictated addendum note Assessment: Vital Signs/I&O: Vital Signs Date Time Temp Pulse Resp B/P (MAP) Pulse Ox O2 Delivery O2 Flow Rate FiO2 10/31/19 20:11 62 131/75 10/31/19 15:49 97.4 16 99 10/30/19 16:12 Room Air I & O 10/30/19 10/30/19 10/31/19 15:00 23:00 07:00 Intake Total 1080 ml 720 ml Balance 1080 ml 720 ml Current Medications: I have reviewed the current psychotropics carefully including drug interactions. Risk benefit ratio favors no change other than as noted in my dictated progress note. Diagnosis: Problems: (1) Psychotic disorder (2) Anxiety disorder (3) Impulse control disorder (4) Major depressive disorder, recurrent episode ERNESTINA KINSEY MD Oct 31, 2019 21:21
--- NOTE | 2019-11-01 02:01 | NUR ---
Last evening pt was pleasant and social in day room. She said she has made some good friends here. Meds were taken whole without difficulty she denies Si and has had no behaviors this shift.
[2019-11-01] MEDS: ACETAMINOPHEN 325 MG TABLET PO PRN ×2 (05:38→19:39)
[2019-11-01] MEDS: LEVOTHYROXINE 50 MCG TABLET PO SCH (05:38)
[2019-11-01 05:48] VITALS: BP 149/74
[2019-11-01] MEDS: OMEGA-3 FATTY ACIDS/FISH OIL 1,000 MG CAPSULE. PO SCH (08:37)
[2019-11-01] MEDS: MULTIVITAMIN with MINERAL TABLET. PO SCH (08:37)
[2019-11-01] MEDS: LACTOBACILLUS RHAMNOSUS GG 1 CAPSULE. PO SCH (08:37)
[2019-11-01] MEDS: CALCIUM CARB/VIT D3 500/200 TABLET PO SCH ×2 (08:38→19:39)
[2019-11-01] MEDS: POLYETHYLENE GLYCOL 3350 17 GM PACKET. PO SCH (08:38)
[2019-11-01] MEDS: FLUTICASONE 50MCG/NASAL SPRAY 16GM BOTTLE. NS SCH (08:38)
[2019-11-01] MEDS: METOPROLOL TART IMMED RELEASE 50 MG TABLET PO SCH ×2 (08:38→19:40)
[2019-11-01] MEDS: LISINOPRIL 20 MG TABLET PO SCH (08:38)
[2019-11-01] MEDS: MAGNESIUM OXIDE 400 MG TABLET PO SCH ×2 (08:38→19:39)
[2019-11-01] MEDS: ASPIRIN ENTERIC COATED 81 MG TABLET.DR. PO SCH (08:38)
[2019-11-01] MEDS: PANTOPRAZOLE 40 MG TABLET. PO SCH (08:38)
[2019-11-01] MEDS: NYSTATIN 100,000 UNITS/ML ORAL SUSPENSION 60ML BOTTLE. PO SCH ×4 (08:38→19:40)
--- NOTE | 2019-11-01 10:33 | NUR ---
Patient cooperative with all cares this shift. Compliant with medication administration. Denies any SI at this time. Patient is currently participating in activities in day room at this time. Takes meds whole.
[2019-11-01] MEDS: ONDANSETRON ODT 4 MG TAB.RAPDIS PO PRN (12:12)
[2019-11-01 16:02] VITALS: BP 118/70
[2019-11-01] MEDS: MAG HYDROX/AL HYDROX/SIMETH 30 ML ORAL.SUSP PO PRN (17:26)
[2019-11-01] MEDS: ATORVASTATIN CALCIUM 20 MG TABLET PO SCH (19:39)
[2019-11-01] MEDS: CYCLOBENZAPRINE 10 MG TABLET. PO SCH (19:39)
--- NOTE | 2019-11-01 22:02 | PDOC ---
Exam Note: Ashok Note: Please also refer to the separate dictated note~for this date of service dictated separately.~Patient seen individually. Discussed the patient with Nursing staff reviewed the chart.~Reviewed interim history and current functioning. Reviewed vital signs,~Labs/ Radiology~and current medications noted below. Continue current treatment with the changes noted in the dictated addendum note Assessment: Vital Signs/I&O: Vital Signs Date Time Temp Pulse Resp B/P (MAP) Pulse Ox O2 Delivery O2 Flow Rate FiO2 11/01/19 19:40 64 118/70 11/01/19 16:02 97.6 16 97 10/30/19 16:12 Room Air I & O 10/31/19 10/31/19 11/01/19 15:00 23:00 07:00 Intake Total 600 ml 360 ml 120 ml Balance 600 ml 360 ml 120 ml Current Medications: I have reviewed the current psychotropics carefully including drug interactions. Risk benefit ratio favors no change other than as noted in my dictated progress note. Diagnosis: Problems: (1) Psychotic disorder (2) Anxiety disorder (3) Impulse control disorder (4) Major depressive disorder, recurrent episode ERNESTINA KINSEY MD Nov 01, 2019 22:02
[2019-11-02 06:28] VITALS: BP 113/61
[2019-11-02 07:40] LABS: CREATININE 1.1 mg/dL (0.6-1.0); GFR 48.4; POTASSIUM 3.9 mmol/L (3.5-5.1)
[2019-11-02] MEDS: OMEGA-3 FATTY ACIDS/FISH OIL 1,000 MG CAPSULE. PO SCH (08:42)
[2019-11-02] MEDS: LEVOTHYROXINE 50 MCG TABLET PO SCH (08:42)
[2019-11-02] MEDS: CALCIUM CARB/VIT D3 500/200 TABLET PO SCH ×2 (08:43→20:03)
[2019-11-02] MEDS: LISINOPRIL 20 MG TABLET PO SCH (08:43)
[2019-11-02] MEDS: METOPROLOL TART IMMED RELEASE 50 MG TABLET PO SCH ×2 (08:43→20:03)
[2019-11-02] MEDS: LACTOBACILLUS RHAMNOSUS GG 1 CAPSULE. PO SCH (08:43)
[2019-11-02] MEDS: PANTOPRAZOLE 40 MG TABLET. PO SCH (08:43)
[2019-11-02] MEDS: MAGNESIUM OXIDE 400 MG TABLET PO SCH ×2 (08:43→20:05)
[2019-11-02] MEDS: MULTIVITAMIN with MINERAL TABLET. PO SCH (08:43)
[2019-11-02] MEDS: FLUTICASONE 50MCG/NASAL SPRAY 16GM BOTTLE. NS SCH (08:44)
[2019-11-02] MEDS: ASPIRIN ENTERIC COATED 81 MG TABLET.DR. PO SCH (08:44)
[2019-11-02] MEDS: NYSTATIN 100,000 UNITS/ML ORAL SUSPENSION 60ML BOTTLE. PO SCH ×4 (08:44→20:09)
[2019-11-02] MEDS: POLYETHYLENE GLYCOL 3350 17 GM PACKET. PO SCH (08:44)
--- NOTE | 2019-11-02 14:10 | NUR ---
Pt has been calm, pleasant, and cooperative with cares and medication this shift. Pt has been social during meals and has been out in the day room most of the day. Pt has been helpful with other patients in a good way; she has been encouraging them to eat their meals and take their medication. Trupti is independent with walking with her walker. Pt takes meds whole.
[2019-11-02 15:59] VITALS: BP 149/72
[2019-11-02] MEDS: ATORVASTATIN CALCIUM 20 MG TABLET PO SCH (20:03)
[2019-11-02] MEDS: CYCLOBENZAPRINE 10 MG TABLET. PO SCH (20:03)
--- NOTE | 2019-11-02 21:18 | PN ---
DATE: 11/02/2019 PSYCHIATRIC PROGRESS NOTE This late entry 11/01/2019 covers elements not covered in my initial note. SUBJECTIVE: I met with the patient evening of 11/01/2019. The patient slept 7-1/4 hours previous night. The patient is compliant with the medications, doing better, still depressed. REVIEW OF SYSTEMS: Ambulation impaired with walker. Complains of heartburn. No CV, , pulmonary, eye system symptoms on review. MENTAL STATUS EXAM: Reasonably oriented. Speech is coherent, has some latency. Abstraction fair, computation impaired, language function intact. Mood and affect still depressed. LABORATORY DATA: Reviewed. IMPRESSION: Unchanged from initial note. PLAN: No change from initial note. ERNETSINA KINSEY MD DR: KELSIE/renzo JOB#: [id number] / [id number]
--- NOTE | 2019-11-02 21:36 | PN ---
DATE: 10/31/2019 This late entry, 10/31, covers elements not covered in my initial note. SUBJECTIVE: I met with the patient evening of 10/31 and staffed at treatment team meeting with the entire team earlier in the day. The patient attended the treatment team meeting. Appetite 80%, slept 6-1/2 hours, 5-3/4 hours previous night. She has been pleasant, compliant, still depressed. Denies suicidal ideation. She talked about her son, wanting her to move closer to him in [place] or to [place] where she would be closer to her brother and sister. Sodium was 124. Cymbalta and trazodone could interfere with this and we will stop the Cymbalta for now and monitor. REVIEW OF SYSTEMS: Ambulation impaired with walker. No CV, , pulmonary, eye system symptoms on review. MENTAL STATUS EXAM: Reasonably oriented. Speech is coherent, abstraction fair, computation impaired, language function intact. Mood and affect still somewhat depressed, withdrawn. No suicidal ideation. LABORATORY DATA: Reviewed. IMPRESSION: Unchanged from initial note. PLAN: No change from initial note. MAN Lit KINSEY MD DR: KELSIE/renzo JOB#: [id number] / [id number]
--- NOTE | 2019-11-02 21:41 | PDOC ---
Exam Note: Ashok Note: Please also refer to the separate dictated note~for this date of service dictated separately.~Patient seen individually. Discussed the patient with Nursing staff reviewed the chart.~Reviewed interim history and current functioning. Reviewed vital signs,~Labs/ Radiology~and current medications noted below. Continue current treatment with the changes noted in the dictated addendum note Assessment: Vital Signs/I&O: Vital Signs Date Time Temp Pulse Resp B/P (MAP) Pulse Ox O2 Delivery O2 Flow Rate FiO2 11/02/19 20:03 66 149/72 11/02/19 15:59 97.4 16 93 10/30/19 16:12 Room Air I & O 11/01/19 11/01/19 11/02/19 15:00 23:00 07:00 Intake Total 600 ml 600 ml Balance 600 ml 600 ml Labs: Laboratory Tests Test 11/02/19 06:59 Sodium Level 127 mmol/L (136-145) L Potassium Level 3.9 mmol/L (3.5-5.1) Chloride Level 90 mmol/L (98-107) L Carbon Dioxide Level 30 mmol/L (21-32) Anion Gap 7 (6-14) Blood Urea Nitrogen 14 mg/dL (7-20) Creatinine 1.1 mg/dL (0.6-1.0) H Estimated GFR (Cockcroft-Gault) 48.4 Glucose Level 82 mg/dL (70-99) Calcium Level 9.0 mg/dL (8.5-10.1) Current Medications: I have reviewed the current psychotropics carefully including drug interactions. Risk benefit ratio favors no change other than as noted in my dictated progress note. Diagnosis: Problems: (1) Psychotic disorder (2) Anxiety disorder (3) Impulse control disorder (4) Major depressive disorder, recurrent episode ERNESTINA KINSEY MD Nov 02, 2019 21:41
[2019-11-02] MEDS: ACETAMINOPHEN 325 MG TABLET PO PRN (22:40)
--- NOTE | 2019-11-02 23:58 | NUR ---
Nursing Note The patient was located in the hallways and in the day room for her assessment and medications. The patient was calm and cooperative during assessments and medication pass. The patient requested PRN Tylenol @ 2240 for generalized pain. The patient was given PRN Tylenol per PRN order. The patient is currently sleeping in her room.
[2019-11-03 05:43] VITALS: BP 108/63
[2019-11-03] MEDS: LEVOTHYROXINE 50 MCG TABLET PO SCH (05:51)
[2019-11-03] MEDS: OMEGA-3 FATTY ACIDS/FISH OIL 1,000 MG CAPSULE. PO SCH (08:53)
[2019-11-03] MEDS: MAGNESIUM OXIDE 400 MG TABLET PO SCH ×2 (08:53→20:04)
[2019-11-03] MEDS: ASPIRIN ENTERIC COATED 81 MG TABLET.DR. PO SCH (08:53)
[2019-11-03] MEDS: CALCIUM CARB/VIT D3 500/200 TABLET PO SCH ×2 (08:53→20:03)
[2019-11-03] MEDS: MULTIVITAMIN with MINERAL TABLET. PO SCH (08:53)
[2019-11-03] MEDS: LACTOBACILLUS RHAMNOSUS GG 1 CAPSULE. PO SCH (08:54)
[2019-11-03] MEDS: LISINOPRIL 20 MG TABLET PO SCH (08:54)
[2019-11-03] MEDS: POLYETHYLENE GLYCOL 3350 17 GM PACKET. PO SCH (08:54)
[2019-11-03] MEDS: METOPROLOL TART IMMED RELEASE 50 MG TABLET PO SCH ×2 (08:54→20:03)
[2019-11-03] MEDS: FLUTICASONE 50MCG/NASAL SPRAY 16GM BOTTLE. NS SCH (08:54)
[2019-11-03] MEDS: PANTOPRAZOLE 40 MG TABLET. PO SCH (08:54)
[2019-11-03] MEDS: NYSTATIN 100,000 UNITS/ML ORAL SUSPENSION 60ML BOTTLE. PO SCH ×4 (09:09→20:09)
--- NOTE | 2019-11-03 14:54 | NUR ---
NURSING NOTE: PATIENT IN DINING ROOM AT TIME OF AM ASSESSMENT. PATIENT ALERT AND ORIENTED X4, SPEECH CLEAR, ABLE TO MAKE NEEDS KNOWN. LCTA. PATIENT ON ROOM AIR. NO COUGH NOTED. BS ACTIVE X4 QUADRANTS. LAST BM: 11/03 PER PATIENT WAS LOOSE, SCHEDULED MIRALAX HELD THIS AM. PATIENT OFFERED NO COMPLAINTS THUS FAR THIS SHIFT. MEDICATIONS GIVEN WHOLE, TOLERATED WELL. PATIENT ENCOURAGED TO DRINK GATORADE INSTEAD OF WATER TODAY TO INCREASE LOW SODIUM LEVEL. NO BEHAVIORS NOTED TODAY. PATIENT HAS BEEN CALM AND COOPERATIVE WITH STAFF. MEDICATION COMPLIANT. NO CONCERNS NOTED, WILL CONTINUE TO MONITOR.
[2019-11-03 16:00] VITALS: BP 109/65
--- NOTE | 2019-11-03 17:02 | NUR ---
NURSING NOTES: THIS NURSE SPOKE TO DR. KINSEY TODAY ABOUT PATIENT BEHAVIORS AND SLEEPING ABILITIES. NO NEW ORDERS RECEIVED AT THIS TIME. WILL CONTINUE TO MONITOR.
[2019-11-03] MEDS: ATORVASTATIN CALCIUM 20 MG TABLET PO SCH (20:04)
[2019-11-03] MEDS: CYCLOBENZAPRINE 10 MG TABLET. PO SCH (20:04)
--- NOTE | 2019-11-03 21:23 | PDOC ---
Exam Note: Ashok Note: Please also refer to the separate dictated note~for this date of service dictated separately.~Patient seen individually. Discussed the patient with Nursing staff reviewed the chart.~Reviewed interim history and current functioning. Reviewed vital signs,~Labs/ Radiology~and current medications noted below. Continue current treatment with the changes noted in the dictated addendum note Assessment: Vital Signs/I&O: Vital Signs Date Time Temp Pulse Resp B/P (MAP) Pulse Ox O2 Delivery O2 Flow Rate FiO2 11/03/19 20:03 62 109/65 11/03/19 16:00 97.3 16 100 10/30/19 16:12 Room Air I & O 11/02/19 11/02/19 11/03/19 15:00 23:00 07:00 Intake Total 480 ml 480 ml 240 ml Balance 480 ml 480 ml 240 ml Current Medications: I have reviewed the current psychotropics carefully including drug interactions. Risk benefit ratio favors no change other than as noted in my dictated progress note. Diagnosis: Problems: (1) Psychotic disorder (2) Anxiety disorder (3) Impulse control disorder (4) Major depressive disorder, recurrent episode ERNESTINA KINSEY MD Nov 03, 2019 21:23
--- NOTE | 2019-11-03 23:15 | NUR ---
Nursing Note The patient was located in the day room for her assessment and medication pass. The patient took her medication whole and was very pleasant and appropriate during interactions with this nurse and peers. The patient is currently sleeping in her room.
--- NOTE | 2019-11-03 23:50 | PN ---
DATE: 11/02/2019 PSYCHIATRIC PROGRESS NOTE This late entry 11/02/2019 covers elements not covered in my initial note. SUBJECTIVE: I met with the patient evening of 11/02/2019. Per JOSE Michel, the patient slept 7-1/4 hours previous night. She has been compliant with her treatment. Sodium is 147. She overt drinks water and being encouraged to reduce this since she has hyponatremia, questionable SIADH and nursing staff are encouraging Gatorade. We will repeat the electrolytes in 2 days and in the meantime we have stopped the Cymbalta. REVIEW OF SYSTEMS: Ambulation impaired with walker. No CV, , pulmonary, eye system symptoms on review. MENTAL STATUS EXAM: Reasonably oriented. Speech has some latency, coherent. Abstraction fair, computation impaired, language function intact. Mood and affect somewhat dysphoric and anxious. I met with her in her room at some length. LABORATORY DATA: Reviewed. IMPRESSION: Unchanged from initial note. PLAN: No change from initial note. ERNESTINA KINSEY MD DR: KELSIE/renzo JOB#: [id number] / [id number]
[2019-11-04] MEDS: ACETAMINOPHEN 325 MG TABLET PO PRN ×2 (01:47→19:58)
[2019-11-04] MEDS: ONDANSETRON ODT 4 MG TAB.RAPDIS PO PRN (02:01)
[2019-11-04 05:52] VITALS: BP 121/66
[2019-11-04] MEDS: LEVOTHYROXINE 50 MCG TABLET PO SCH (05:54)
[2019-11-04 07:11] LABS: ALBUMIN 3.3 g/dL (3.4-5.0); CREATININE 1.1 mg/dL (0.6-1.0); GFR 48.4; POTASSIUM 4.2 mmol/L (3.5-5.1); TOTAL BILIRUBIN 0.4 mg/dL (0.2-1.0); TOTAL PROTEIN 6.7 g/dL (6.4-8.2)
[2019-11-04] MEDS: FLUTICASONE 50MCG/NASAL SPRAY 16GM BOTTLE. NS SCH (08:21)
[2019-11-04] MEDS: MULTIVITAMIN with MINERAL TABLET. PO SCH (08:22)
[2019-11-04] MEDS: LISINOPRIL 20 MG TABLET PO SCH (08:22)
[2019-11-04] MEDS: OMEGA-3 FATTY ACIDS/FISH OIL 1,000 MG CAPSULE. PO SCH (08:22)
[2019-11-04] MEDS: CALCIUM CARB/VIT D3 500/200 TABLET PO SCH ×2 (08:22→19:55)
[2019-11-04] MEDS: METOPROLOL TART IMMED RELEASE 50 MG TABLET PO SCH ×2 (08:22→19:54)
[2019-11-04] MEDS: NYSTATIN 100,000 UNITS/ML ORAL SUSPENSION 60ML BOTTLE. PO SCH ×3 (08:23→17:13)
[2019-11-04] MEDS: PANTOPRAZOLE 40 MG TABLET. PO SCH (08:23)
[2019-11-04] MEDS: LACTOBACILLUS RHAMNOSUS GG 1 CAPSULE. PO SCH (08:23)
[2019-11-04] MEDS: ASPIRIN ENTERIC COATED 81 MG TABLET.DR. PO SCH (08:23)
[2019-11-04] MEDS: MAGNESIUM OXIDE 400 MG TABLET PO SCH ×2 (08:23→19:54)
[2019-11-04] MEDS: POLYETHYLENE GLYCOL 3350 17 GM PACKET. PO SCH ×2 (08:24→08:25)
--- NOTE | 2019-11-04 08:33 | NUR ---
Patient states she is having loose stools and refused scheduled miralax. Patient has been receiving prune juice each morning with her breakfast. Nurse advised patient to not drink the prune juice when she is having loose stools.
--- NOTE | 2019-11-04 11:48 | NUR ---
Patient calm, pleasant and cooperative. Patient takes medications whole with water. She denies SI when asked and has been observed being social with peers during meals. Patient in day room during morning and participated during exercise group.
--- NOTE | 2019-11-04 12:43 | NUR ---
STANLEY has received no return call from [employer] program. Left message two for Ilia Glass with request for return phone call. Addendum: 11/04/19 at 1459 by ROMINA ANGEL STANLEY received return phone call from Ilia Glass at [facility]. At this time, [facility] is not a covered service area for the [facility] program.
[2019-11-04] MEDS: MAG HYDROX/AL HYDROX/SIMETH 30 ML ORAL.SUSP PO PRN (13:58)
--- NOTE | 2019-11-04 14:00 | NUR ---
Patient reports nausea and heartburn. Patient has history of GERD. PRN mylanta given per order.
--- NOTE | 2019-11-04 15:04 | NUR ---
Call placed to [facility], , with intent to inquire about support services including case management that might be available to Marilu. Left message with request for a return phone call.
[2019-11-04 16:24] VITALS: BP 146/71
[2019-11-04] MEDS: CYCLOBENZAPRINE 10 MG TABLET. PO SCH (19:54)
[2019-11-04] MEDS: ATORVASTATIN CALCIUM 20 MG TABLET PO SCH (19:54)
--- NOTE | 2019-11-04 19:56 | PN ---
DATE: 11/03/2019 PSYCHIATRIC PROGRESS NOTE This late entry 11/03/2019 covers elements not covered in my initial note. SUBJECTIVE: I met with the patient evening of 11/03/2019. Per JOSE Coles, the patient slept 6-3/4 hours previous night. She has been doing better, still somewhat withdrawn, anxious, dysphoric in her mood. REVIEW OF SYSTEMS: Ambulation impaired with walker. No CV, , pulmonary, eye system symptoms on review. MENTAL STATUS EXAM: Reasonably oriented. Speech is coherent, has some latency. Abstraction fair, computation impaired, language function intact, attention span short. Mood and affect withdrawn. No active suicidal ideation. LABORATORY DATA: Reviewed. IMPRESSION: Major depressive disorder, recurrent, in partial remission; anxiety disorder, unspecified. Rest unchanged. PLAN: Continue current psychotropics. Check electrolytes morning of 11/04/2019 and then decide on restarting antidepressants secondary to some of her mood, anxiety symptoms persisting. ERNESTINA KINSEY MD DR: KELSIE/renzo JOB#: [id number] / [id number]
--- NOTE | 2019-11-04 21:18 | PDOC ---
Exam Note: Ashok Note: Please also refer to the separate dictated note~for this date of service dictated separately.~Patient seen individually. Discussed the patient with Nursing staff reviewed the chart.~Reviewed interim history and current functioning. Reviewed vital signs,~Labs/ Radiology~and current medications noted below. Continue current treatment with the changes noted in the dictated addendum note Assessment: Vital Signs/I&O: Vital Signs Date Time Temp Pulse Resp B/P (MAP) Pulse Ox O2 Delivery O2 Flow Rate FiO2 11/04/19 19:54 64 146/71 11/04/19 16:24 97.8 16 100 10/30/19 16:12 Room Air I & O 11/03/19 11/03/19 11/04/19 15:00 23:00 07:00 Intake Total 960 ml 480 ml 120 ml Balance 960 ml 480 ml 120 ml Labs: Laboratory Tests Test 11/04/19 06:25 Sodium Level 128 mmol/L (136-145) L Potassium Level 4.2 mmol/L (3.5-5.1) Chloride Level 93 mmol/L (98-107) L Carbon Dioxide Level 27 mmol/L (21-32) Anion Gap 8 (6-14) Blood Urea Nitrogen 19 mg/dL (7-20) Creatinine 1.1 mg/dL (0.6-1.0) H Estimated GFR (Cockcroft-Gault) 48.4 BUN/Creatinine Ratio 17 (6-20) Glucose Level 97 mg/dL (70-99) Calcium Level 9.0 mg/dL (8.5-10.1) Total Bilirubin 0.4 mg/dL (0.2-1.0) Aspartate Amino Transferase (AST) 20 U/L (15-37) Alanine Aminotransferase (ALT) 26 U/L (14-59) Alkaline Phosphatase 48 U/L (46-116) Total Protein 6.7 g/dL (6.4-8.2) Albumin 3.3 g/dL (3.4-5.0) L Albumin/Globulin Ratio 1.0 (1.0-1.7) Current Medications: I have reviewed the current psychotropics carefully including drug interactions. Risk benefit ratio favors no change other than as noted in my dictated progress note. Diagnosis: Problems: (1) Psychotic disorder (2) Anxiety disorder (3) Impulse control disorder (4) Major depressive disorder, recurrent episode TIO,MAN M MD Nov 04, 2019 21:18
--- NOTE | 2019-11-04 23:39 | NUR ---
Nursing Note The patient was located in the day room for her assessment and medication pass. The patient took her medication whole and was very pleasant and appropriate during interactions with this nurse and peers. The patient requested PRN Tylenol with her HS medication which she received. The patient is currently sleeping in her room.
[2019-11-05 05:41] VITALS: BP 112/70
[2019-11-05] MEDS: ACETAMINOPHEN 325 MG TABLET PO PRN ×2 (06:28→20:49)
[2019-11-05] MEDS: LEVOTHYROXINE 50 MCG TABLET PO SCH (06:28)
[2019-11-05] MEDS: FLUTICASONE 50MCG/NASAL SPRAY 16GM BOTTLE. NS SCH (08:43)
[2019-11-05] MEDS: LACTOBACILLUS RHAMNOSUS GG 1 CAPSULE. PO SCH (08:44)
[2019-11-05] MEDS: METOPROLOL TART IMMED RELEASE 50 MG TABLET PO SCH ×2 (08:44→20:37)
[2019-11-05] MEDS: LISINOPRIL 20 MG TABLET PO SCH (08:45)
[2019-11-05] MEDS: MULTIVITAMIN with MINERAL TABLET. PO SCH (08:45)
[2019-11-05] MEDS: buPROPion XL 150 MG TAB.ER.24H PO SCH (08:45)
[2019-11-05] MEDS: PANTOPRAZOLE 40 MG TABLET. PO SCH (08:45)
[2019-11-05] MEDS: ASPIRIN ENTERIC COATED 81 MG TABLET.DR. PO SCH (08:45)
[2019-11-05] MEDS: CALCIUM CARB/VIT D3 500/200 TABLET PO SCH ×2 (08:45→20:37)
[2019-11-05] MEDS: OMEGA-3 FATTY ACIDS/FISH OIL 1,000 MG CAPSULE. PO SCH (08:45)
[2019-11-05] MEDS: MAGNESIUM OXIDE 400 MG TABLET PO SCH ×2 (08:45→20:37)
--- NOTE | 2019-11-05 08:52 | NUR ---
Changed patients miralax to 1700 per her request, she stated that she takes it at 1700 at home if she hasn't had her daily BM.
--- NOTE | 2019-11-05 11:13 | NUR ---
Patient stated that she had been having loose stools and stomach pain the past couple of days. Patient is alert and oriented x4. She is compliant with medications and cooperative with cares. Patient is able to ambulate independently using her walker and to make her needs known.
--- NOTE | 2019-11-05 14:26 | NUR ---
Left message two for [facility] in [facility], requested return phone call. Left message for [facility] care transitions coordinator with intent to inquire if they service [facility], requested return phone call. Marilu actively participated in SW group this afternoon.
[2019-11-05 16:11] VITALS: BP 138/79
[2019-11-05] MEDS: POLYETHYLENE GLYCOL 3350 17 GM PACKET. PO SCH (17:20)
--- NOTE | 2019-11-05 17:21 | NUR ---
Patient refuses miralax, states she is having loose stools.
[2019-11-05] MEDS: ATORVASTATIN CALCIUM 20 MG TABLET PO SCH (20:36)
[2019-11-05] MEDS: CYCLOBENZAPRINE 10 MG TABLET. PO SCH (20:37)
--- NOTE | 2019-11-05 21:00 | NUR ---
Pt was in the day room earlier watching tv. She was pleasant cooperative and took meds without difficulty. She denies Si or delusions. After going to bed she has been sleeping. No behaviors tonight.
--- NOTE | 2019-11-05 21:19 | PDOC ---
Exam Note: Ashok Note: Please also refer to the separate dictated note~for this date of service dictated separately.~Patient seen individually. Discussed the patient with Nursing staff reviewed the chart.~Reviewed interim history and current functioning. Reviewed vital signs,~Labs/ Radiology~and current medications noted below. Continue current treatment with the changes noted in the dictated addendum note Assessment: Vital Signs/I&O: Vital Signs Date Time Temp Pulse Resp B/P (MAP) Pulse Ox O2 Delivery O2 Flow Rate FiO2 11/05/19 20:37 70 138/79 11/05/19 16:11 97.1 18 97 10/30/19 16:12 Room Air I & O 11/04/19 11/04/19 11/05/19 15:00 23:00 07:00 Intake Total 840 ml 480 ml 240 ml Balance 840 ml 480 ml 240 ml Current Medications: Meds: Current Medications Medications (Trade) Dose Ordered Sig/Scott Route PRN Reason Start Time Stop Time Status Last Admin Dose Admin Bupropion HCl (Wellbutrin Xl) 150 mg DAILY PO 11/05/19 09:00 11/05/19 08:45 I have reviewed the current psychotropics carefully including drug interactions. Risk benefit ratio favors no change other than as noted in my dictated progress note. Diagnosis: Problems: (1) Psychotic disorder (2) Anxiety disorder (3) Impulse control disorder (4) Major depressive disorder, recurrent episode ERNESTINA KINSEY MD Nov 05, 2019 21:19
--- NOTE | 2019-11-05 21:43 | PN ---
DATE: 11/04/2019 PSYCHIATRIC PROGRESS NOTE This late entry, 11/04, covers the elements not covered in my initial note. SUBJECTIVE: I met with the patient on the evening of 11/04. Per JOSE Turner, the patient slept 5-3/4 hours previous night. She has been anxious, somewhat withdrawn, depressed, but less so than before. Sodium is 128 improved from 124 to 127. We have had a pharmacy consult and Wellbutrin as an antidepressant should not have any propensity for SIADH. REVIEW OF SYSTEMS: Ambulation impaired with walker. No CV, , pulmonary, eye systems symptoms on review. MENTAL STATUS EXAM: Reasonably oriented. Speech is coherent, abstraction fair, computation impaired, language function intact, attention span short. Mood and affect withdrawn, anxious. LABORATORY DATA: Reviewed. IMPRESSION: Unchanged from initial note. PLAN: Start Wellbutrin-XL 150 mg a day. Rest unchanged for now. ERNESTINA KINSEY MD DR: KELSIE/renzo JOB#: [id number] / [id number]
[2019-11-06 05:39] VITALS: BP 118/67
[2019-11-06] MEDS: LEVOTHYROXINE 50 MCG TABLET PO SCH (05:43)
[2019-11-06] MEDS: FLUTICASONE 50MCG/NASAL SPRAY 16GM BOTTLE. NS SCH (08:50)
[2019-11-06] MEDS: LACTOBACILLUS RHAMNOSUS GG 1 CAPSULE. PO SCH (08:51)
[2019-11-06] MEDS: MAGNESIUM OXIDE 400 MG TABLET PO SCH ×2 (08:51→21:12)
[2019-11-06] MEDS: buPROPion XL 150 MG TAB.ER.24H PO SCH (08:51)
[2019-11-06] MEDS: PANTOPRAZOLE 40 MG TABLET. PO SCH (08:51)
[2019-11-06] MEDS: MULTIVITAMIN with MINERAL TABLET. PO SCH (08:51)
[2019-11-06] MEDS: ASPIRIN ENTERIC COATED 81 MG TABLET.DR. PO SCH (08:52)
[2019-11-06] MEDS: LISINOPRIL 20 MG TABLET PO SCH (08:52)
[2019-11-06] MEDS: CALCIUM CARB/VIT D3 500/200 TABLET PO SCH ×2 (08:52→21:12)
[2019-11-06] MEDS: OMEGA-3 FATTY ACIDS/FISH OIL 1,000 MG CAPSULE. PO SCH (08:52)
[2019-11-06] MEDS: METOPROLOL TART IMMED RELEASE 50 MG TABLET PO SCH ×2 (08:53→21:12)
[2019-11-06] MEDS: POLYETHYLENE GLYCOL 3350 17 GM PACKET. PO SCH (08:59)
--- NOTE | 2019-11-06 10:45 | NUR ---
WEEKLY ACTIVITY THERAPY NOTE Date of Admission: 10/24/2019 Date of AT Assessment: 10/27/2019 Goal aimed: to increase socialization and leisure awareness Initial Goal: Pt. will participate in at least one Activity Therapy group per day. Weekly progress towards goal: achieved Group participation level: 6 full Weekly highlights: Jennie Cordon experience on Sunday Behaviors observed: reading away from group, social, concerned for and helpful to others, appeared to be slightly more withdrawn at times Plan: no change to goal Beneficial adaptations: reading material
--- NOTE | 2019-11-06 14:29 | TX PLAN ---
Interdisciplinary Tx Plan Admission Information Oct 23, 2019 at 20:40 Legal Status (on Admission): Voluntary DPOA/Guardian Name: Trupti Mckeon-self sign Verified Code Status: Full Code Allergies: Coded Allergies: Sulfa (Sulfonamide Antibiotics) (Verified Allergy, Unknown, Unknown, 10/23/19) alendronate sodium (Verified Allergy, Unknown, Unknown, 10/23/19) amlodipine (Verified Allergy, Unknown, Swelling, 10/23/19) cephalexin (Verified Allergy, Unknown, Itching, 10/23/19) cetirizine (Verified Allergy, Unknown, Unknown, 10/23/19) Drowsiness and fatigue cinnamon (Verified Allergy, Unknown, Unknown, 10/23/19) ciprofloxacin (Verified Allergy, Unknown, Unknown, 10/23/19) citalopram (Verified Allergy, Unknown, Unknown, 10/23/19) guaifenesin (Verified Allergy, Unknown, Unknown, 10/23/19) levofloxacin (Verified Allergy, Unknown, Unknown, 10/23/19) levothyroxine sodium (Verified Allergy, Unknown, Itching, 10/23/19) Only the 75 mcg dose lorazepam (Verified Allergy, Unknown, Itching, 10/23/19) metoclopramide (Verified Allergy, Unknown, Unknown, 10/23/19) phenylephrine (Verified Allergy, Unknown, Unknown, 10/23/19) phenylpropanolamine (Verified Allergy, Unknown, Itching, 10/23/19) prednisone (Verified Allergy, Unknown, Anxiety, 10/23/19) pseudoephedrine (Verified Allergy, Unknown, Palpitations, 10/23/19) tegaserod (Verified Allergy, Unknown, Unknown, 10/23/19) Estimated Length of Stay: 14 Diagnoses Primary Diagnosis: MDD Reasons for Admission: Depressed, Grief, Suicidal ideation Problem in Patient's Words: Per Trupti, "Partly Haily moving away. I've had sciatica pain and have been isolating." Additional Admission Comments: Per intake record, SI, doesn't trust herself not to harm herself, unable to commit to safety, fearful, ruminating, intrusive thoughts, daughter recently moved away to [place]. Problems Active Problems: Continues to report depressed mood Stressed about future living arrangements Inactive Problems: Medication compliant Pt Strengths/Limitations Ability for [place]: Fair Cognitive Functioning/Ability: Good Communication Skills/Ability: Good Financial Resources: Fair Insight/Judgement: Fair Intellectual Ability: Good Physical Health: Fair Social Skills: Good Stability in Family: Fair Verbal Skills: Good Discharge Criteria Discharge Criteria: Able meet basic life need, Able to meet health needs, Adequate arrangements @DC, Improved mood/thought Other Discharge Comments: Madelin is open to receiving information about the PACE program for possible increased supports in the community. Preliminary Discharge Plan Preliminary DC Plan: Current Living Arrange., Home Special Precautions Special Precautions: Suicide Risk Fall Risk: High Initial D/C Plan Home, apartment at [facility]. Trupti is discussing thread grinder living arrangements and is considering a move to be closer to her son. Identified Discharge Needs: Out patient psychiatry, follow up with counselor, f/u with PCP. Currently Utilized Resources Currently Utilized Resources/P: Medical appointments with PCP. Referrals Community Resources: Possible PACE services Identified Problems/Hx/Goals Objectives/Short-Term Goals Short Term Goals: Decrease Isolation, Dec. Symp. Depression, Medication Stabilization, Monitor Med Effects, No Suicidal/Berenice. ideation, Prevent Deterioration, Promote Coping Skill Short Term Goals in Patient's: "Get everything straightened out in my mind." Interventions/Frequency Staff Interventions/Frequency&: Nursing provides regular safety checks, medication administation, adl support. Psychiatry visits 3-5 times per week. SW visits twice weekly. SW and recreational therapy groups as Trupti desires. 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 Education: Trupti attended school thru the 9th grade. She later obtained her GED at 44 years of age. Community Follow-up PCP, mental health for counseling and medication management, possibly PACE services Community Provider/Family Inpu: Marilu participated in team meeting on this date. Treatment Plan Explained Patient/Mba Internship had this treatment plan explained to him/her as indicated by the signature below and has been given the opportunity to ask questions and make suggestions: Date: Patient/[employer]ba Internship Signature: Status Update Update WEEKLY NOTE/UPDATE: Marilu is averaging 75% of meals and 6.5 hours of sleep. She is calm, compliant with meds and assessments, and social with peers. Marilu is fully participating in recreational and SW groups and initiates reading independently. Lab work will be completed on 11/07/19. A referral for follow up services at [facility] will be completed for upcoming discharge with tentative plan to d/c home on 11/11/19. SW is awaiting return call from [facility] to determine if services are available to Marilu. Marilu participated in team meeting on this date. ROMINA CUBA Nov 06, 2019 14:29
--- NOTE | 2019-11-06 14:56 | NUR ---
Patient is calm and cooperative. She is compliant with her medications and interested in her treatment plan. Patient participates in groups and spends time socializing and interacting with peers and staff. She denies SI when asked.
[2019-11-06 15:49] VITALS: BP 155/80
[2019-11-06] MEDS: CYCLOBENZAPRINE 10 MG TABLET. PO SCH (21:12)
[2019-11-06] MEDS: ACETAMINOPHEN 325 MG TABLET PO PRN (21:12)
[2019-11-06] MEDS: ATORVASTATIN CALCIUM 20 MG TABLET PO SCH (21:12)
--- NOTE | 2019-11-06 21:24 | PDOC ---
Exam Note: Ashok Note: Please also refer to the separate dictated note~for this date of service dictated separately.~Patient seen individually. Discussed the patient with Nursing staff reviewed the chart.~Reviewed interim history and current functioning. Reviewed vital signs,~Labs/ Radiology~and current medications noted below. Continue current treatment with the changes noted in the dictated addendum note Assessment: Vital Signs/I&O: Vital Signs Date Time Temp Pulse Resp B/P (MAP) Pulse Ox O2 Delivery O2 Flow Rate FiO2 11/06/19 21:12 65 155/80 11/06/19 15:49 97.6 16 100 11/06/19 05:39 Room Air I & O 11/05/19 11/05/19 11/06/19 15:00 23:00 07:00 Intake Total 960 ml 480 ml 240 ml Balance 960 ml 480 ml 240 ml Current Medications: I have reviewed the current psychotropics carefully including drug interactions. Risk benefit ratio favors no change other than as noted in my dictated progress note. Diagnosis: Problems: (1) Psychotic disorder (2) Anxiety disorder (3) Impulse control disorder (4) Major depressive disorder, recurrent episode ERNESTINA KINSEY MD Nov 06, 2019 21:24
--- NOTE | 2019-11-06 23:56 | NUR ---
Pt located in dining room this evening. Pleasant and interactive. Compliant with medications. PRN Tylenol administered per pt request.
[2019-11-07] MEDS: SIMETHICONE 80 MG TAB.CHEW PO PRN ×2 (02:15→20:50)
[2019-11-07] MEDS: LEVOTHYROXINE 50 MCG TABLET PO SCH (06:16)
[2019-11-07 06:37] VITALS: BP 146/71
[2019-11-07 07:32] LABS: BASO % 1 % (0-3); EOS # 0.2 x10^3/uL (0.0-0.7); EOS % 3 % (0-3); HEMATOCRIT 34.3 % (36.0-47.0); HEMOGLOBIN 11.9 g/dL (12.0-15.5); LYMPH # 1.3 x10^3/uL (1.0-4.8); LYMPH % 19 % (24-48); MEAN CORPUSCULAR HEMOGLOBIN 34 pg (25-35); MEAN CORPUSCULAR HGB CONC 35 g/dL (31-37); MEAN CORPUSCULAR VOLUME 98 fL (79-100); MONO # 0.7 x10^3/uL (0.0-1.1); MONO % 10 % (0-9); NEUT # 4.8 x10^3uL (1.8-7.7); NEUT % 68 % (31-73); PLATELET COUNT 243 x10^3/uL (140-400); RED BLOOD COUNT 3.51 x10^6/uL (3.50-5.40); RED CELL DISTRIBUTION WIDTH 12.2 % (11.5-14.5); WHITE BLOOD COUNT 7.1 x10^3/uL (4.0-11.0)
[2019-11-07 07:44] LABS: ALBUMIN 3.6 g/dL (3.4-5.0); CALCIUM 9.3 mg/dL (8.5-10.1); GFR 54.1; POTASSIUM 4.4 mmol/L (3.5-5.1); TOTAL BILIRUBIN 0.6 mg/dL (0.2-1.0); TOTAL PROTEIN 7.1 g/dL (6.4-8.2)
[2019-11-07] MEDS: FLUTICASONE 50MCG/NASAL SPRAY 16GM BOTTLE. NS SCH (08:30)
[2019-11-07] MEDS: METOPROLOL TART IMMED RELEASE 50 MG TABLET PO SCH ×2 (08:30→20:35)
[2019-11-07] MEDS: buPROPion XL 150 MG TAB.ER.24H PO SCH (08:30)
[2019-11-07] MEDS: MULTIVITAMIN with MINERAL TABLET. PO SCH (08:30)
[2019-11-07] MEDS: CALCIUM CARB/VIT D3 500/200 TABLET PO SCH ×2 (08:31→20:34)
[2019-11-07] MEDS: PANTOPRAZOLE 40 MG TABLET. PO SCH (08:31)
[2019-11-07] MEDS: LISINOPRIL 20 MG TABLET PO SCH (08:31)
[2019-11-07] MEDS: OMEGA-3 FATTY ACIDS/FISH OIL 1,000 MG CAPSULE. PO SCH (08:31)
[2019-11-07] MEDS: LACTOBACILLUS RHAMNOSUS GG 1 CAPSULE. PO SCH (08:31)
[2019-11-07] MEDS: ASPIRIN ENTERIC COATED 81 MG TABLET.DR. PO SCH (08:31)
[2019-11-07] MEDS: MAGNESIUM OXIDE 400 MG TABLET PO SCH ×2 (08:31→20:35)
--- NOTE | 2019-11-07 09:52 | NUR ---
Nursing Note Pt calm, pleasant, interactive with peers and staffs. Compliant with cares and medications. Denies SI. No aggressions.
--- NOTE | 2019-11-07 13:23 | NUR ---
[facility] Social Work Discharge Planning Form Patient Name TRUPTI GEORGE Admit Date: 10/23/2019 DISCHARGE PLAN Discharge Destination: Home Care Assessment: n/a Transportation: Judaism friend, Binu Robledo at [phone], will pick Trupti up on 11/10/19 at 1pm. Special Instructions/Notes: See below DISCHARGE TO HOME: Address: [address] [place] [id number] [facility] [address] Responsible Democrat: Trupti-self sign Pharmacy: [facility], . This pharmacy does not accept faxes. Psychiatrist/Mental Health Follow Up: Trupti has an appointment with Criss Shay, counselor at [facility], on 11/18/19 at 8am. [facility] is located at [address] [place] [id number]. Trupti has a medication management intake appointment with Juvenal [place] at [facility] on 12/03/19 at 3:20pm. Trupti needs to call and confirm this appointment on December 01 to number [phone]. Primary Care Follow Up: Trupti has an appointment scheduled with Dr. Medrano on 11/17/19 at 2:30pm. Dr. Medrano's phone number is [phone]. Dr. Medrano's fax number is [phone]. Home Health: Trupti will be followed by [facility], Inter[facility] will call Trupti to schedule an appointment time to see her at home. [facility] is [phone]. A referral to [facility] has been completed.
--- NOTE | 2019-11-07 15:03 | NUR ---
1:1 with Trupti Michel. Reviewed upcoming discharge plans, arrangements, follow up appointments, and transportation details. Developed written safety plan utilizing Trupti's input. Copy placed on medical record and on chart to be included in discharge packet to go with Trupti. Trupti is looking forward to returning to her apartment and speaks of making a Toni Santiago croissant and coffee upon her arrival home. Trupti is having regular phone conversations with her son who has located an [place]EE[place] near him in [place] that Trupti may move to in the future. She asked about VA benefits and SW encouraged her to contact the VA to inquire and complete necessary paperwork to determine if she is eligible. Wished Trupti well as she prepares to transition home.
--- NOTE | 2019-11-07 15:36 | NUR ---
Faxed home health referral to Karlee at [facility]( [phone], fax) with request for start of care on 11/11/19.
[2019-11-07 16:15] VITALS: BP 135/78
[2019-11-07] MEDS: POLYETHYLENE GLYCOL 3350 17 GM PACKET. PO SCH ×2 (17:00→17:20)
--- NOTE | 2019-11-07 19:00 | PN ---
DATE: 11/06/2019 PSYCHIATRIC PROGRESS NOTE This late entry 11/06/2019 covers the elements not covered in my initial note. SUBJECTIVE: I met with the patient in the evening and staffed at a treatment team meeting with the entire team in the morning and the patient attended the treatment team meeting. Sleeping average 6-1/2 hours. Appetite is 75%. We will check her electrolytes morning of 11/07/2019. REVIEW OF SYSTEMS: Ambulation impaired with walker. No CV, , pulmonary, eye system symptoms on review. Does have some GI symptoms. MENTAL STATUS EXAM: Reasonably oriented. Speech is low in volume, coherent, abstraction fair, computation impaired, language function intact. Mood and affect still depressed, anxious, but no suicidal ideation. LABORATORY DATA: Reviewed. IMPRESSION: Unchanged from initial note. PLAN: No change from initial note. MAN Lit KINSEY MD DR: KELSIE/renzo JOB#: [id number] / [id number]
--- NOTE | 2019-11-07 19:00 | PN ---
DATE: 11/05/2019 This late entry 11/05/2019 covers elements not covered in my initial note. SUBJECTIVE: I met with the patient evening of 11/05/2019. Per JOSE Turner, the patient slept 6 hours previous night. She complains of some back pain. Ambulation impaired with walker. Remains on Wellbutrin. REVIEW OF SYSTEMS: No CV, or pulmonary system symptoms on review. Does have some GI symptoms with GI upset, symptoms of GERD. MENTAL STATUS EXAM: Reasonably oriented. Speech is coherent, low in volume. Abstraction fair, computation impaired, language function intact, attention span short. Mood and affect still depressed. No suicidal ideation. LABORATORY DATA: Reviewed. IMPRESSION: Unchanged from initial note. PLAN: No change from initial note. She is tolerating the addition of Wellbutrin as an antidepressant. Sodium levels are gradually improving, up to 128 now. MAN Lit KINSEY MD DR: KELSIE/renzo JOB#: [id number] / [id number]
[2019-11-07] MEDS: CYCLOBENZAPRINE 10 MG TABLET. PO SCH (20:34)
[2019-11-07] MEDS: ATORVASTATIN CALCIUM 20 MG TABLET PO SCH (20:34)
[2019-11-07] MEDS: ACETAMINOPHEN 325 MG TABLET PO PRN (20:35)
--- NOTE | 2019-11-07 21:17 | PDOC ---
Exam Note: Ashok Note: Please also refer to the separate dictated note~for this date of service dictated separately.~Patient seen individually. Discussed the patient with Nursing staff reviewed the chart.~Reviewed interim history and current functioning. Reviewed vital signs,~Labs/ Radiology~and current medications noted below. Continue current treatment with the changes noted in the dictated addendum note Assessment: Vital Signs/I&O: Vital Signs Date Time Temp Pulse Resp B/P (MAP) Pulse Ox O2 Delivery O2 Flow Rate FiO2 11/07/19 20:35 80 135/78 11/07/19 16:15 97.3 16 98 11/07/19 06:37 Room Air I & O 11/06/19 11/06/19 11/07/19 15:00 23:00 07:00 Intake Total 960 ml 480 ml 240 ml Balance 960 ml 480 ml 240 ml Labs: Laboratory Tests Test 11/07/19 06:57 White Blood Count 7.1 x10^3/uL (4.0-11.0) Red Blood Count 3.51 x10^6/uL (3.50-5.40) Hemoglobin 11.9 g/dL (12.0-15.5) L Hematocrit 34.3 % (36.0-47.0) L Mean Corpuscular Volume 98 fL (79-100) Mean Corpuscular Hemoglobin 34 pg (25-35) Mean Corpuscular Hemoglobin Concent 35 g/dL (31-37) Red Cell Distribution Width 12.2 % (11.5-14.5) Platelet Count 243 x10^3/uL (140-400) Neutrophils (%) (Auto) 68 % (31-73) Lymphocytes (%) (Auto) 19 % (24-48) L Monocytes (%) (Auto) 10 % (0-9) H Eosinophils (%) (Auto) 3 % (0-3) Basophils (%) (Auto) 1 % (0-3) Neutrophils # (Auto) 4.8 x10^3uL (1.8-7.7) Lymphocytes # (Auto) 1.3 x10^3/uL (1.0-4.8) Monocytes # (Auto) 0.7 x10^3/uL (0.0-1.1) Eosinophils # (Auto) 0.2 x10^3/uL (0.0-0.7) Basophils # (Auto) 0.0 x10^3/uL (0.0-0.2) Sodium Level 128 mmol/L (136-145) L Potassium Level 4.4 mmol/L (3.5-5.1) Chloride Level 91 mmol/L (98-107) L Carbon Dioxide Level 30 mmol/L (21-32) Anion Gap 7 (6-14) Blood Urea Nitrogen 14 mg/dL (7-20) Creatinine 1.0 mg/dL (0.6-1.0) Estimated GFR (Cockcroft-Gault) 54.1 BUN/Creatinine Ratio 14 (6-20) Glucose Level 92 mg/dL (70-99) Calcium Level 9.3 mg/dL (8.5-10.1) Total Bilirubin 0.6 mg/dL (0.2-1.0) Aspartate Amino Transferase (AST) 22 U/L (15-37) Alanine Aminotransferase (ALT) 25 U/L (14-59) Alkaline Phosphatase 47 U/L (46-116) Total Protein 7.1 g/dL (6.4-8.2) Albumin 3.6 g/dL (3.4-5.0) Albumin/Globulin Ratio 1.0 (1.0-1.7) Current Medications: I have reviewed the current psychotropics carefully including drug interactions. Risk benefit ratio favors no change other than as noted in my dictated progress note. Diagnosis: Problems: (1) Psychotic disorder (2) Anxiety disorder (3) Impulse control disorder (4) Major depressive disorder, recurrent episode ERNESTINA KINSEY MD Nov 07, 2019 21:17
--- NOTE | 2019-11-07 22:00 | NUR ---
Patient is in the day room on assumption of care. She is calm, cooperative and compliant with assessments and medications taken whole. She enjoyed a conversation with her daughter on the phone. Complained of bilateral leg pain and requested PRN Tylenol to be given with her HS meds. While administering HS meds, patient also requested a PRN Gas-X, stating that she had been up at 0200 the previous night with gas. No agitation this shift. No further complaints of pain or discomfort. Denies SI.
[2019-11-08] MEDS: LEVOTHYROXINE 50 MCG TABLET PO SCH (05:32)
[2019-11-08 06:23] VITALS: BP 133/61
[2019-11-08] MEDS: FLUTICASONE 50MCG/NASAL SPRAY 16GM BOTTLE. NS SCH (08:48)
[2019-11-08] MEDS: OMEGA-3 FATTY ACIDS/FISH OIL 1,000 MG CAPSULE. PO SCH (08:48)
[2019-11-08] MEDS: LISINOPRIL 20 MG TABLET PO SCH (08:49)
[2019-11-08] MEDS: MAGNESIUM OXIDE 400 MG TABLET PO SCH ×2 (08:49→20:44)
[2019-11-08] MEDS: buPROPion XL 150 MG TAB.ER.24H PO SCH (08:49)
[2019-11-08] MEDS: ASPIRIN ENTERIC COATED 81 MG TABLET.DR. PO SCH (08:49)
[2019-11-08] MEDS: PANTOPRAZOLE 40 MG TABLET. PO SCH (08:49)
[2019-11-08] MEDS: CALCIUM CARB/VIT D3 500/200 TABLET PO SCH ×2 (08:49→20:44)
[2019-11-08] MEDS: MULTIVITAMIN with MINERAL TABLET. PO SCH (08:49)
[2019-11-08] MEDS: LACTOBACILLUS RHAMNOSUS GG 1 CAPSULE. PO SCH (08:49)
[2019-11-08] MEDS: METOPROLOL TART IMMED RELEASE 50 MG TABLET PO SCH ×2 (08:50→20:45)
--- NOTE | 2019-11-08 10:26 | NUR ---
Patient compliant with assessment and medication. Patient expresses eagerness towards her upcoming discharge. She states she has a lot of support from her jew. Patient invited staff to join her there. Patient has no further needs at this time.
[2019-11-08 16:17] VITALS: BP 104/54
[2019-11-08] MEDS: POLYETHYLENE GLYCOL 3350 17 GM PACKET. PO SCH (17:18)
[2019-11-08] MEDS: CYCLOBENZAPRINE 10 MG TABLET. PO SCH (20:44)
[2019-11-08] MEDS: ATORVASTATIN CALCIUM 20 MG TABLET PO SCH (20:44)
--- NOTE | 2019-11-08 21:16 | PDOC ---
Exam Note: Ashok Note: Please also refer to the separate dictated note~for this date of service dictated separately.~Patient seen individually. Discussed the patient with Nursing staff reviewed the chart.~Reviewed interim history and current functioning. Reviewed vital signs,~Labs/ Radiology~and current medications noted below. Continue current treatment with the changes noted in the dictated addendum note Assessment: Vital Signs/I&O: Vital Signs Date Time Temp Pulse Resp B/P (MAP) Pulse Ox O2 Delivery O2 Flow Rate FiO2 11/08/19 20:45 94 104/54 11/08/19 16:17 97.8 18 97 Room Air I & O 11/07/19 11/07/19 11/08/19 15:00 23:00 07:00 Intake Total 1080 ml 480 ml 520 ml Balance 1080 ml 480 ml 520 ml Current Medications: I have reviewed the current psychotropics carefully including drug interactions. Risk benefit ratio favors no change other than as noted in my dictated progress note. Diagnosis: Problems: (1) Psychotic disorder (2) Anxiety disorder (3) Impulse control disorder (4) Major depressive disorder, recurrent episode ERNESTINA KINSEY MD Nov 08, 2019 21:16
--- NOTE | 2019-11-08 23:00 | NUR ---
Patient is in the day room on assumption of care. She is calm, cooperative and compliant with assessments and medications taken whole. She remains in good spirits and is looking forward to discharge. No agitation. Denies pain and discomfort. Denies SI.
[2019-11-09] MEDS: SIMETHICONE 80 MG TAB.CHEW PO PRN ×2 (01:59→13:09)
--- NOTE | 2019-11-09 02:32 | NUR ---
Patient complaining of gas pain and requesting PRN. Gas-X given at 0200, pending effect. Will continue to monitor.
[2019-11-09] MEDS: LEVOTHYROXINE 50 MCG TABLET PO SCH (06:22)
[2019-11-09 06:29] VITALS: BP 152/68
[2019-11-09] MEDS: CALCIUM CARB/VIT D3 500/200 TABLET PO SCH ×2 (08:12→20:39)
[2019-11-09] MEDS: buPROPion XL 150 MG TAB.ER.24H PO SCH (08:12)
[2019-11-09] MEDS: OMEGA-3 FATTY ACIDS/FISH OIL 1,000 MG CAPSULE. PO SCH (08:12)
[2019-11-09] MEDS: LACTOBACILLUS RHAMNOSUS GG 1 CAPSULE. PO SCH (08:13)
[2019-11-09] MEDS: ASPIRIN ENTERIC COATED 81 MG TABLET.DR. PO SCH (08:13)
[2019-11-09] MEDS: FLUTICASONE 50MCG/NASAL SPRAY 16GM BOTTLE. NS SCH (08:13)
[2019-11-09] MEDS: METOPROLOL TART IMMED RELEASE 50 MG TABLET PO SCH ×2 (08:13→20:40)
[2019-11-09] MEDS: PANTOPRAZOLE 40 MG TABLET. PO SCH (08:14)
[2019-11-09] MEDS: MAGNESIUM OXIDE 400 MG TABLET PO SCH ×2 (08:14→20:39)
[2019-11-09] MEDS: MULTIVITAMIN with MINERAL TABLET. PO SCH (08:14)
[2019-11-09] MEDS: LISINOPRIL 20 MG TABLET PO SCH (08:15)
--- NOTE | 2019-11-09 09:47 | NUR ---
Patient compliant with medication and assessment. Patient interacting with other residents. Patient appears cheerful and has no further needs at this time. Patient has no reported a bowel movement today.
[2019-11-09 16:12] VITALS: BP 102/62
[2019-11-09] MEDS: POLYETHYLENE GLYCOL 3350 17 GM PACKET. PO SCH (17:11)
[2019-11-09] MEDS: CYCLOBENZAPRINE 10 MG TABLET. PO SCH (20:39)
[2019-11-09] MEDS: ATORVASTATIN CALCIUM 20 MG TABLET PO SCH (20:40)
--- NOTE | 2019-11-09 21:23 | PDOC ---
Exam Note: Ashok Note: Please also refer to the separate dictated note~for this date of service dictated separately.~Patient seen individually. Discussed the patient with Nursing staff reviewed the chart.~Reviewed interim history and current functioning. Reviewed vital signs,~Labs/ Radiology~and current medications noted below. Continue current treatment with the changes noted in the dictated addendum note Assessment: Vital Signs/I&O: Vital Signs Date Time Temp Pulse Resp B/P (MAP) Pulse Ox O2 Delivery O2 Flow Rate FiO2 11/09/19 20:40 65 102/62 11/09/19 16:12 98.1 16 99 11/08/19 16:17 Room Air I & O 11/08/19 11/08/19 11/09/19 15:00 23:00 07:00 Intake Total 600 ml 460 ml 120 ml Balance 600 ml 460 ml 120 ml Current Medications: I have reviewed the current psychotropics carefully including drug interactions. Risk benefit ratio favors no change other than as noted in my dictated progress note. Diagnosis: Problems: (1) Psychotic disorder (2) Anxiety disorder (3) Impulse control disorder (4) Major depressive disorder, recurrent episode ERNESTINA KINSEY MD Nov 09, 2019 21:23
--- NOTE | 2019-11-09 22:00 | NUR ---
Patient is in the day room on assumption of care. She is calm, cooperative and compliant with assessments and medications taken whole. Pleasant, interactive and appropriate with peers and staff. No agitation. Denies pain and discomfort. Denies SI.
--- NOTE | 2019-11-09 23:09 | PN ---
DATE: 11/07/2019 PSYCHIATRIC PROGRESS NOTE This late entry of 11/07/2019 covers the elements not covered in my initial note. SUBJECTIVE: I met with the patient in the evening of 11/07/2019. Per JOSE Stoll, the patient slept 4-1/2 hours previous night. She has been attending groups, tolerating Wellbutrin-XL 150 mg a day, little more animated and social. REVIEW OF SYSTEMS: Ambulation impaired with walker. No CV, , pulmonary, eye system symptoms on review. MENTAL STATUS EXAM: Reasonably oriented. Speech has some latency, coherent. Abstraction fair, computation impaired, language function intact, attention span short. Mood and affect is improved. LABORATORY DATA: Reviewed. No suicidal ideation. IMPRESSION: Unchanged from initial note. PLAN: No change from initial note. MAN Lit KINSEY MD DR: KELSIE/renzo JOB#: [id number] / [id number]
[2019-11-10] MEDS ORDERED: ACET325T21 PO (00:46)
[2019-11-10] MEDS ORDERED: MAG-115 PO (00:51)
[2019-11-10] MEDS ORDERED: MAGN24003 PO (00:53)
[2019-11-10] MEDS ORDERED: MAGN400T5 PO (00:54)
[2019-11-10] MEDS ORDERED: METH28OI2 TP (00:56)
[2019-11-10] MEDS ORDERED: ONDA4TAB12 PO (00:59)
[2019-11-10] MEDS ORDERED: BUPR-192 PO (01:03)
[2019-11-10] MEDS ORDERED: TRAZ-120 PO (01:04)
[2019-11-10 05:56] VITALS: BP 114/67
[2019-11-10] MEDS: LEVOTHYROXINE 50 MCG TABLET PO SCH (06:03)
[2019-11-10] MEDS: ASPIRIN ENTERIC COATED 81 MG TABLET.DR. PO SCH (08:43)
[2019-11-10] MEDS: LACTOBACILLUS RHAMNOSUS GG 1 CAPSULE. PO SCH (08:44)
[2019-11-10] MEDS: MULTIVITAMIN with MINERAL TABLET. PO SCH (08:44)
[2019-11-10] MEDS: MAGNESIUM OXIDE 400 MG TABLET PO SCH (08:44)
[2019-11-10] MEDS: METOPROLOL TART IMMED RELEASE 50 MG TABLET PO SCH (08:44)
[2019-11-10] MEDS: OMEGA-3 FATTY ACIDS/FISH OIL 1,000 MG CAPSULE. PO SCH (08:44)
[2019-11-10] MEDS: buPROPion XL 150 MG TAB.ER.24H PO SCH (08:44)
[2019-11-10] MEDS: PANTOPRAZOLE 40 MG TABLET. PO SCH (08:44)
[2019-11-10 08:45] VITALS: BP 114/67
[2019-11-10] MEDS: CALCIUM CARB/VIT D3 500/200 TABLET PO SCH (08:45)
[2019-11-10] MEDS: LISINOPRIL 20 MG TABLET PO SCH (08:45)
[2019-11-10] MEDS: FLUTICASONE 50MCG/NASAL SPRAY 16GM BOTTLE. NS SCH (08:45)
--- NOTE | 2019-11-10 10:05 | DS ---
DATE OF DISCHARGE: 11/10/2019 DISCHARGE SUMMARY/PSYCHIATRIC PROGRESS NOTE This note covers elements not covered in my initial note 11/10/2019. REASON FOR ADMISSION: Please refer to the admission history for details. Briefly, the patient is a 74-year-old female referred to us from [facility] after she presented from home with worsening symptoms of depression and suicidal ideation without a plan. The patient states she saw the democrats wanted to investigate Trump again and she became depressed, hopeless, worthless, presented to the ER and then referred to us for inpatient psychiatric stabilization given her suicidal ideation and the fact that she lives alone at home since her daughter moved away to the [facility] few months back. SIGNIFICANT FINDINGS AND CLINICAL COURSE: Following admission, the patient was seen daily individually by myself from a psychiatric standpoint, medical followup with Dr. Milan. The patient was quite withdrawn, depressed, feeling somewhat hopeless, worthless, able to address the above stressors at some length individually. Adjustments were made in her psychotropics. On the SSRIs, she developed hyponatremia/SIADH, which is something she has done in the past and this was changed to Wellbutrin XL 150 mg a day. Trazodone was added 50 mg at bedtime p.r.n., january repeat x 1 for insomnia and she seemed to do better with this combination. REVIEW OF SYSTEMS: Prior to discharge on 11/10/2019 ambulation impaired with walker. No CV, , pulmonary, eye, ENT system symptoms on review. MENTAL STATUS EXAM: Oriented reasonably. Speech has some latency, coherent. Abstraction fair, computation impaired, language function intact. Mood and affect improved. No suicidal ideation prior to discharge. CONDITION AT ON DISCHARGE: Improved. FINAL DIAGNOSES: Major depressive disorder, recurrent, in partial remission; anxiety disorder, unspecified. Rest unchanged from admission. DISCHARGE MEDICATIONS: Please refer to the MRAD. DISCHARGE INSTRUCTIONS: Outpatient psychiatric followup as arranged by social service staff prior to discharge and medical followup with her primary care physician. Time for discharge day management greater than 30 minutes. MAN Lit KINSEY MD DR: KELSIE/renzo JOB#: [id number] / [id number]
--- NOTE | 2019-11-10 10:32 | NUR ---
Nursing note: Pt in dining room for morning meds and assessment. She was pleasant, med compliant, and cooperative with her assessment. Pt had no complaints at time of assessment and mentioned feeling much better than previous day. She is currently in the day room. Will continue to monitor.
--- NOTE | 2019-11-10 11:36 | PN ---
DATE: 11/09/2019 PSYCHIATRIC PROGRESS NOTE This late entry 11/09/2019 covers elements not covered in my initial note. SUBJECTIVE: I met with the patient evening of 11/09/2019. Per JOSE Anglin, the patient slept 6 hours previous night. She has had a lot of GI symptoms, received Gas-X per nursing report, but otherwise mood is better. REVIEW OF SYSTEMS: Other than above ambulation impaired with walker. No CV, , pulmonary, eye system symptoms on review. MENTAL STATUS EXAM: Reasonably oriented. Speech has some latency, coherent. Abstraction fair, computation impaired, language function intact. Mood and affect is improved. No suicidal ideation. LABORATORY DATA: Reviewed. IMPRESSION: Unchanged from initial note. PLAN: No change from initial note. MAN Lit KINSEY MD DR: KELSIE/renzo JOB#: [id number] / [id number]
--- NOTE | 2019-11-10 13:26 | NUR ---
Transition Record was faxed to follow-up provider with the following elements: Reason for admission, procedures, tests, principal diagnosis, pending studies, patient instructions, 02/04 contact information for unit, phone number to obtain pending test results, plan for follow-up care, physician follow-up, advanced directive information, and medication list with dose, duration and instructions. This information was included in the following documents: History and physical, lab results, study results, progress notes, social work planning form, DC instruction form, patient visit summary, and medication reconciliation form. Date & time record faxed: 11/10/2019 @ 0302 Record faxed to: Dr. Medrano @ [phone] Record discussed with/ report given to: Patient
--- NOTE | 2019-11-10 20:17 | PN ---
DATE: 11/08/2019 PSYCHIATRIC PROGRESS NOTE This late entry, October, covers elements not covered in my initial note. SUBJECTIVE: I met with the patient in the evening. Per Millie RN, patient slept 6-1/4 hours previous night. She is overall doing better, looking forward to her discharge. Denies suicidal ideation. REVIEW OF SYSTEMS: Ambulation impaired with walker. No CV, , pulmonary, eye system symptoms on review. MENTAL STATUS EXAMINATION: The patient is reasonably oriented. Speech has some latency, coherent. Abstraction fair, computation impaired, language function intact, attention span short. Mood and affect is improved. LABORATORY DATA: Reviewed. IMPRESSION: Unchanged from initial note. PLAN: No change from initial note. MAN Lit KINSEY MD DR: KELSIE/renzo JOB#: [id number] / [id number]
--- NOTE | 2019-11-10 21:12 | PDOC ---
Exam Note: Ashok Note: Please also refer to the separate dictated note~for this date of service dictated separately.~Patient seen individually. Discussed the patient with Nursing staff reviewed the chart.~Reviewed interim history and current functioning. Reviewed vital signs,~Labs/ Radiology~and current medications noted below. Continue current treatment with the changes noted in the dictated addendum note Assessment: Vital Signs/I&O: Vital Signs Date Time Temp Pulse Resp B/P (MAP) Pulse Ox O2 Delivery O2 Flow Rate FiO2 11/10/19 08:45 60 114/67 11/10/19 05:56 97.7 18 99 11/08/19 16:17 Room Air I & O 11/09/19 11/09/19 11/10/19 15:00 23:00 07:00 Intake Total 720 ml 240 ml 120 ml Balance 720 ml 240 ml 120 ml Current Medications: I have reviewed the current psychotropics carefully including drug interactions. Risk benefit ratio favors no change other than as noted in my dictated progress note. Diagnosis: Problems: (1) Psychotic disorder (2) Anxiety disorder (3) Impulse control disorder (4) Major depressive disorder, recurrent episode ERNESTINA KINSEY MD Nov 10, 2019 21:12
== END 2019-11-10 13:29 | disposition home or self-care (01) | DRG 885 ==
LOC: GEROPSY 20:40
PROVIDERS: ADMIT Psychiatry & Neurology Psychiatry; ATTEND Psychiatry & Neurology Psychiatry
DX: F33.3 Major depressive disorder, recurrent, severe with psychotic symptoms (principal); R45.851 Suicidal ideations; K21.9 Gastro-esophageal reflux disease without esophagitis; E03.9 Hypothyroidism, unspecified; N18.3 Chronic kidney disease, stage 3 (moderate); I35.1 Nonrheumatic aortic (valve) insufficiency; Z95.0 Presence of cardiac pacemaker; Z79.899 Other long term (current) drug therapy; E78.5 Hyperlipidemia, unspecified; I73.9 Peripheral vascular disease, unspecified; G47.00 Insomnia, unspecified; F03.90 Unspecified dementia, unspecified severity, without behavioral disturbance, psychotic disturbance, mood disturbance, and anxiety; F41.9 Anxiety disorder, unspecified; I12.9 Hypertensive chronic kidney disease with stage 1 through stage 4 chronic kidney disease, or unspecified chronic kidney disease; Z88.1 Allergy status to other antibiotic agents; Z88.8 Allergy status to other drugs, medicaments and biological substances; M19.90 Unspecified osteoarthritis, unspecified site; M81.0 Age-related osteoporosis without current pathological fracture; F63.9 Impulse disorder, unspecified; M54.30 Sciatica, unspecified side
CPT/HCPCS: 36415; 80048; 80053; 80061; 81001; 82306; 82607; 83036; 83540; 83550; 83735; 84436; 84443; 84480; 85025; 86592; 93005; Q0162; 97110; 97535